=== PATIENT | male | born 1930 | race Caucasian/White ===

== ENCOUNTER → 2017-01-11 | Outpatient (CLI) | payer OTHER, BC ==
[~2017-01-11] MED LIST: ACET-1256 PO; ADVIN10/60 INH; ALBUAER19 INH; ARTIOIN OPB; ASTN NAE; AZAT50TA17 PO; CARB25TA12 PO; CLB/200 PO; DOCU100C31 PO; DUTA0.5C PO; FLUOCINOLONE TOP; IPRASOL4 INH; LVQ750 PO; MULT-190 PO; MULT-845 PO; NYST1POW7 TD; PANT40TA PO; POLYSOL4 OP; POLYSOL4 OPB; PRED10TA PO; PRED20TA PO; SNG10 PO; SYMIN160 INH; TRMCR130WC TD; TYLOTC500 PO; VNTHFA/IN INH
[2017-01-11 12:57] LABS: URINE APPEARANCE CLEAR (CLEAR); URINE BILIRUBIN NEG (NEG); URINE COLOR YELLOW; URINE NITRITE NEG (NEG); URINE SPECIFIC GRAVITY 1.015 (1.000-1.030); UROBILINOGEN NEG (NEG)
[2017-01-11 12:58] LABS: MANUAL MICROSCOPIC REQUIRED? NO; REVIEW REQ? NO
== END | disposition home or self-care (01) ==
LOC: C.LABVPSUA 12:17
PROVIDERS: ATTEND Internal Medicine Critical Care Medicine
DX: R50.9 Fever, unspecified (principal); R41.0 Disorientation, unspecified

== ENCOUNTER → 2017-01-23 | Outpatient (CLI) | payer OTHER, MEDICARE ==
[2017-01-23 12:18] LABS: BLOOD UREA NITROGEN 29 mg/dl (7-18); BUN/CREATININE RATIO 17.9 (10-20); CALCIUM 8.9 mg/dl (8.5-10.1); CARBON DIOXIDE 26 mmol/L (21-32); CHLORIDE 107 mmol/L (98-107); GLUCOSE 89 mg/dl (70-99); MAGNESIUM 2.5 mg/dl (1.8-2.4); PHOSPHORUS 3.5 mg/dl (2.5-4.9); POTASSIUM 4.2 mmol/L (3.5-5.1); SODIUM 142 mmol/L (136-145)
== END | disposition home or self-care (01) ==
LOC: C.LAB1850 10:55
PROVIDERS: ATTEND Internal Medicine Nephrology
DX: N18.3 Chronic kidney disease, stage 3 (moderate) (principal)

== ENCOUNTER 2017-01-24 11:45 | Observation (INO) | payer OTHER, MEDICARE ==
[~2017-01-24] VITALS: Ht 172.7 cm; Wt 87.3 kg
[~2017-01-24 11:45] MED LIST changes: -ACET-1256 PO; -ADVIN10/60 INH; -ARTIOIN OPB; -AZAT50TA17 PO; -CARB25TA12 PO; -DOCU100C31 PO; -IPRASOL4 INH; -LVQ750 PO; -NYST1POW7 TD; -PANT40TA PO; -POLYSOL4 OPB; -PRED20TA PO; -TRMCR130WC TD; -VNTHFA/IN INH
[2017-01-24] MEDS ORDERED: SODIUM CHLORIDE 0.9% 1000ML 1,000 ML IV STA (13:18)
--- NOTE | 2017-01-24 13:25 | EMERGENCY ROOM VISIT NOTE ---
History Report prepared by Jf: Kira Castillo Under the Supervision of: Dr. Chayito Machuca M.D. First contact with patient: 13:12 Chief Complaint: REFERRED BY DOCTOR Stated Complaint: SENT FROM 'S OFFICE FOR ER History of Present Illness The patient is a 86 year old male who presents to the Emergency Room with complaints of worsening neurological symptoms beginning a few days prior to arrival. Per the patient's , the patient has a history of subdural cranial hematoma and as a result has a shunt in place. The patient is followed by Dr. Win [facility]. One week ago the patient had his shunt lowered one degree due to worsening short term memory loss the patient was experiencing. After the procedure the patient had excellent results for two days. After those two days the patient regressed and worsened from his baseline prior to the lowering of the shunt. The patient was unsure of where he was or who his was. The patient was referred to the ED and Dr. Win would like a CT scan of the head to be done and sent to [place] for him to review. If changed to the shunt location, he would like the patient to be transferred to [place]. The patient has been experiencing a 20 pound weight loss in the past few weeks. He did have a bowel movement today. The patient has also been experiencing a rash for the past 3 months and the cause is unknown. The patient denies fever, headache, chest pain, nausea and abdominal pain. He currently is a resident at [place] in the [facility]. 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 A total of 10 systems reviewed and were otherwise negative. Past Medical & Surgical Medical Problems: (1) Chronic intracranial subdural hematoma Surgical Problems: (1) History of hip replacement (2) History of knee replacement Family History Cancer Gallbladder disease Social History Smoking Status: Former Smoker Drug Use: none Marital Status: Housing Status: [facility] Occupation Status: retired Current/Historical Medications Scheduled Azelastine Hcl (Astelin Nasal [place]), 2 SPRAYS CRISTI DAILY Carbidopa/Levodopa (Sinemet 25MG/100MG), 1 TAB PO TID Celecoxib (CeleBREX), 200 MG PO QAM Dutasteride (Avodart), 0.5 MG PO QAM Montelukast Sod (Montelukast Sodium), 10 MG PO QPM Multiple Vitamins W/ Minerals (Centrum Silver Adult 50+), 1 TAB PO QAM Ocuvite Preservision (Ocuvite Preservision), 1 TAB PO DAILY Pantoprazole (Protonix), 40 MG PO DAILY Scheduled PRN Albuterol Hfa (Ventolin Hfa), 2 PUFFS INH Q4H PRN for SOB/Wheezing Ipratropium-Albuterol (Duoneb), 1 TREATMENT INH Q6H PRN for SOB/Wheezing Polyethylene Glycol-Propylene (Systane), 1 DROP OP UD PRN for Dry Eye(s) Allergies Coded Allergies: Animal Dander (Verified Allergy, Unknown, SHORTNESS OF BREATH, 01/24/17) Dust (Verified Allergy, Unknown, SHORTNESS OF BREATH, 01/24/17) NO KNOWN DRUG ALLERGIES (Verified Allergy, Unknown, NONE, 01/24/17) Physical Exam Vital Signs Date Time Temp Pulse Resp B/P Pulse Ox O2 Delivery O2 Flow Rate FiO2 01/24/17 18:05 80 154/80 95 Room Air 01/24/17 15:29 78 139/69 95 Room Air 01/24/17 15:09 78 95 01/24/17 15:04 78 133/71 94 Room Air 01/24/17 15:04 79 133/71 95 01/24/17 13:59 144/81 01/24/17 13:55 79 18 96 01/24/17 13:50 80 19 96 01/24/17 13:45 78 21 94 01/24/17 13:40 80 18 01/24/17 13:35 80 22 01/24/17 13:33 80 01/24/17 13:31 127/74 01/24/17 11:48 36.8 86 18 136/72 94 Room Air Physical Exam Vital signs reviewed. General: Well-appearing elderly man, in no significant distress. HEENT: No scleral icterus, PERRLA, neck supple. Atraumatic. Cardiovascular: Regular rate and rhythm, no extra sounds. Pulmonary: Clear to auscultation bilaterally, normal work of breathing. Abdomen: Soft, nontender, nondistended, positive bowel sounds. Musculoskeletal: Atraumatic, no peripheral edema. Neurologic: Patient awake alert and answers most questions appropriately. Hard of hearing. Confused to city but answers all other questions appropriately. Follows commands. Skin: Warm, dry, no rash Medical Decision & Procedures ER Provider Diagnostic Interpretation: X-ray results as stated below per my interpretation and radiologist interpretation. Other radiology results as stated below per my review and radiologist interpretation: SKULL <4 VIEWS, CERVICAL SPINE 2 OR 3 VIEWS, CHEST 2 VIEWS ROUTINE, ABDOMEN 2 VIEWS CLINICAL HISTORY: 2 views shunt. Evaluate shunt catheter. COMPARISON STUDY: Chest 06/05/2016. FINDINGS: Prior right frontal craniotomy. There is a right frontoparietal ventriculostomy catheter at the high convexity with the tip terminating near the midline. The right-sided shunt tubing appears intact. There are are bibasilar linear densities suggesting subsegmental atelectasis. The heart is top normal in size. No pleural effusions. No pneumothorax. Severe degenerative changes within the bilateral shoulders. The shunt enters the right side the abdomen with the tip terminating in the mid deep pelvis. Bilateral total hip arthroplasties. The bowel gas pattern is unremarkable. Degenerative changes within the mid cervical spine. IMPRESSION: 1. Right-sided ventriculostomy catheter. The tubing appears intact. The distal tip terminates in the mid deep pelvis. 2. Mild bibasilar subsegmental atelectasis within the lungs. 3. Unremarkable bowel gas pattern. No evidence for bowel obstruction. Electronically signed by: Tim Grey M.D. 01/24/2017 2:55 PM Dictated Date/Time: 01/24/2017 2:49 PM SKULL <4 VIEWS, CERVICAL SPINE 2 OR 3 VIEWS, CHEST 2 VIEWS ROUTINE, ABDOMEN 2 VIEWS CLINICAL HISTORY: 2 views shunt. Evaluate shunt catheter. COMPARISON STUDY: Chest 06/05/2016. FINDINGS: Prior right frontal craniotomy. There is a right frontoparietal ventriculostomy catheter at the high convexity with the tip terminating near the midline. The right-sided shunt tubing appears intact. There are are bibasilar linear densities suggesting subsegmental atelectasis. The heart is top normal in size. No pleural effusions. No pneumothorax. Severe degenerative changes within the bilateral shoulders. The shunt enters the right side the abdomen with the tip terminating in the mid deep pelvis. Bilateral total hip arthroplasties. The bowel gas pattern is unremarkable. Degenerative changes within the mid cervical spine. IMPRESSION: 1. Right-sided ventriculostomy catheter. The tubing appears intact. The distal tip terminates in the mid deep pelvis. 2. Mild bibasilar subsegmental atelectasis within the lungs. 3. Unremarkable bowel gas pattern. No evidence for bowel obstruction. Electronically signed by: Tim Grey M.D. 01/24/2017 2:55 PM Dictated Date/Time: 01/24/2017 2:49 PM SKULL <4 VIEWS, CERVICAL SPINE 2 OR 3 VIEWS, CHEST 2 VIEWS ROUTINE, ABDOMEN 2 VIEWS CLINICAL HISTORY: 2 views shunt. Evaluate shunt catheter. COMPARISON STUDY: Chest 06/05/2016. FINDINGS: Prior right frontal craniotomy. There is a right frontoparietal ventriculostomy catheter at the high convexity with the tip terminating near the midline. The right-sided shunt tubing appears intact. There are are bibasilar linear densities suggesting subsegmental atelectasis. The heart is top normal in size. No pleural effusions. No pneumothorax. Severe degenerative changes within the bilateral shoulders. The shunt enters the right side the abdomen with the tip terminating in the mid deep pelvis. Bilateral total hip arthroplasties. The bowel gas pattern is unremarkable. Degenerative changes within the mid cervical spine. IMPRESSION: 1. Right-sided ventriculostomy catheter. The tubing appears intact. The distal tip terminates in the mid deep pelvis. 2. Mild bibasilar subsegmental atelectasis within the lungs. 3. Unremarkable bowel gas pattern. No evidence for bowel obstruction. Electronically signed by: Tim Grey M.D. 01/24/2017 2:55 PM Dictated Date/Time: 01/24/2017 2:49 PM SKULL <4 VIEWS, CERVICAL SPINE 2 OR 3 VIEWS, CHEST 2 VIEWS ROUTINE, ABDOMEN 2 VIEWS CLINICAL HISTORY: 2 views shunt. Evaluate shunt catheter. COMPARISON STUDY: Chest 06/05/2016. FINDINGS: Prior right frontal craniotomy. There is a right frontoparietal ventriculostomy catheter at the high convexity with the tip terminating near the midline. The right-sided shunt tubing appears intact. There are are bibasilar linear densities suggesting subsegmental atelectasis. The heart is top normal in size. No pleural effusions. No pneumothorax. Severe degenerative changes within the bilateral shoulders. The shunt enters the right side the abdomen with the tip terminating in the mid deep pelvis. Bilateral total hip arthroplasties. The bowel gas pattern is unremarkable. Degenerative changes within the mid cervical spine. IMPRESSION: 1. Right-sided ventriculostomy catheter. The tubing appears intact. The distal tip terminates in the mid deep pelvis. 2. Mild bibasilar subsegmental atelectasis within the lungs. 3. Unremarkable bowel gas pattern. No evidence for bowel obstruction. Electronically signed by: Tim Grey M.D. 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 Comparison: 07/11/2016 Findings: The paranasal sinuses and mastoid air cells are clear. Bilateral prefrontal subdural hygromas. A curvilinear density previously described in the left extra-axial frontal region is no longer present. There is a subtle increase in density, however of the anterior aspects of the subdural hygromas. This may indicate a small component of subacute rebleed. There is no evidence for a parenchymal hemorrhagic component. Shunt tube has in good position. Dilatation of ventricular system is stable. Impression: 1. Prefrontal subdural hygromas/chronic hematomas. 2. Overall size and volume of the extra axial collections is unchanged, although a subtle increase in density in the prefrontal regions may indicate a small rebleed component. 3. No evidence for parenchymal hemorrhagic component 4. Stable mild hydrocephalus Electronically signed by: Kevin Alvarez M.D. 01/24/2017 2:25 PM Dictated Date/Time: 01/24/2017 2:18 PM Laboratory Results 01/24/17 13:45 Red Blood Count 4.28, Mean Corpuscular Volume 87.1, Mean Corpuscular Hemoglobin 28.5, Mean Corpuscular Hemoglobin Concent 32.7, Mean Platelet Volume 9.5, Neutrophils (%) (Auto) 71.7, Lymphocytes (%) (Auto) 7.5, Monocytes (%) (Auto) 13.6, Eosinophils (%) (Auto) 6.4, Basophils (%) (Auto) 0.3, Neutrophils # (Auto ) 7.11, Lymphocytes # (Auto) 0.74, Monocytes # (Auto) 1.35, Eosinophils # (Auto ) 0.63, Basophils # (Auto) 0.03 01/24/17 13:45 Test 01/24/17 13:45 01/24/17 14:02 01/24/17 14:43 01/24/17 18:10 White Blood Count 9.91 K/uL (4.8-10.8) Red Blood Count 4.28 M/uL (4.7-6.1) Hemoglobin 12.2 g/dL (14.0-18.0) Hematocrit 37.3 % (42-52) Mean Corpuscular Volume 87.1 fL (80-100) Mean Corpuscular Hemoglobin 28.5 pg (25-34) Mean Corpuscular Hemoglobin Concent 32.7 g/dl (32-36) Platelet Count 332 K/uL (130-400) Mean Platelet Volume 9.5 fL (7.4-10.4) Neutrophils (%) (Auto) 71.7 % Lymphocytes (%) (Auto) 7.5 % Monocytes (%) (Auto) 13.6 % Eosinophils (%) (Auto) 6.4 % Basophils (%) (Auto) 0.3 % Neutrophils # (Auto) 7.11 K/uL (1.4-6.5) Lymphocytes # (Auto) 0.74 K/uL (1.2-3.4) Monocytes # (Auto) 1.35 K/uL (0.11-0.59) Eosinophils # (Auto) 0.63 K/uL (0-0.5) Basophils # (Auto) 0.03 K/uL (0-0.2) RDW Standard Deviation 51.7 fL (36.4-46.3) RDW Coefficient of Variation 16.2 % (11.5-14.5) Immature Granulocyte % (Auto) 0.5 % Immature Granulocyte # (Auto) 0.05 K/uL (0.00-0.02) Anion Gap 10.0 mmol/L (3-11) Est Creatinine Clear Calc Drug Dose 35.6 ml/min Estimated GFR () 44.6 Estimated GFR (Non- 38.4 BUN/Creatinine Ratio 20.1 (10-20) Calcium Level 9.2 mg/dl (8.5-10.1) Magnesium Level 2.5 mg/dl (1.8-2.4) Total Bilirubin 0.3 mg/dl (0.2-1) Direct Bilirubin < 0.1 mg/dl (0-0.2) Aspartate Amino Transf (AST/SGOT) 17 U/L (15-37) Alanine Aminotransferase (ALT/SGPT) 28 U/L (12-78) Alkaline Phosphatase 82 U/L (45-117) Total Creatine Kinase 93 U/L (39-308) Creatine Kinase MB 4.8 ng/ml (0.5-3.6) Creatine Kinase MB Ratio 5.2 (0-3.0) Total Protein 7.4 gm/dl (6.4-8.2) Albumin 3.3 gm/dl (3.4-5.0) Prostate Specific Antigen 2.730 ng/ml (0.000-4.000) Free Prostate Specific Antigen 0.34 ng/ml Percent Free Prostate Specific Ag % Bedside Troponin I 0.010 ng/ml (0-0.045) Prothrombin Time 11.0 SECONDS (9.0-12.0) Prothromb Time International Ratio 1.0 (0.9-1.1) Activated Partial Thromboplast Time 29.6 SECONDS (21.0-31.0) Partial Thromboplastin Ratio 1.1 Urine Color YELLOW Urine Appearance CLEAR (CLEAR) Urine pH 5.0 (4.5-7.5) Urine Specific [place] 1.019 (1.000-1.030) Urine Protein NEG (NEG) Urine Glucose (UA) NEG (NEG) Urine Ketones NEG (NEG) Urine Occult Blood NEG (NEG) Urine Nitrite NEG (NEG) Urine Bilirubin NEG (NEG) Urine Urobilinogen NEG (NEG) Urine Leukocyte Esterase NEG (NEG) Laboratory results per my review. Medications Administered Medications (Trade) Dose Ordered Sig/Alcides Route Start Time Stop Time Status Last Admin Dose Admin Sodium Chloride (Nss 1000ml) 1,000 ml @ 125 mls/hr Q8H STAT IV 01/24/17 13:18 01/24/17 20:45 DC 01/24/17 13:45 125 MLS/HR ECG Indication: other (AMS) Rate (beats per minute): 79 Rhythm: normal sinus Findings: no acute ischemic change, no ectopy ED Course 1316: Past medical records reviewed. The patient was evaluated in room C11. A complete history and physical examination was performed. 1318: Sodium Chloride 1,000 ml @ 125 mls/hr IV. 1555: I spoke with Dr. Audelia Carver about the patient's CT scan. He states that there is no change from the CT scan done last week. 1612: I reviewed the patient's case with Dr. Liz ARITA. He will evaluate the patient for further management. Medical Decision The patient is a 86 year old male who presents to the ED with complaints of neurological changes. Differentials include metabolic, infection, hypoglycemia , electrolyte abnormalities, cardiac sources, intracerebral event, toxicologic, neurologic, as well as others were entertained. This patient was evaluated and appeared to be in no significant distress. CT scan of the head was performed and reveals a possible increase in density in the chronic subdural bleed. Per Dr. Win of neurosurgery at [facility], patient head CT has not changed from several days ago. patient was hydrated with normal saline solution. Laboratory work is fairly unrevealing. Urinalysis is negative. Patient does seem to be somewhat volume depleted. The patient was able to tolerate a dinner tray. He seems to be answering questions appropriately at that this time. He will be evaluated by the hospitalist service for further evaluation of the mental status changes periodically. Patient family are aware of the plan and agree. Consults Time Called: 1552 Consulting Physician: Dr. Audelia [facility] Returned Call: [phone] Audelia Carver about the patient's CT scan. He states that there is no change from the CT scan done last week. Additional Consults: Time Called: 1610 Consulted Physician: Dr. Liz ARITA Returned Call: [phone] Additional Comments: I reviewed the patient's case with Dr. Liz ARITA. He will evaluate the patient for further management. Impression Primary Impression: Altered mental status Additional Impression: Nontraumatic chronic subdural hemorrhage Scribe Attestation The scribe's documentation has been prepared under my direction and personally reviewed by me in its entirety. I confirm that the note above accurately reflects all work, treatment, procedures, and medical decision making performed by me. Departure Information Dispostion Being Evaluated By Hospitalist Referrals Chris Gibson M.D. (PCP) Problem Qualifiers Primary Impression: Altered mental status Altered mental status type: disorientation Qualified Codes: R41.0 - Disorientation, unspecified
[2017-01-24 13:57] LABS: BASO % 0.3 %; BASO ABS # 0.03 K/uL (0-0.2); COMPLETE YES; EOS % 6.4 %; HEMATOCRIT 37.3 % (42-52); IG% 0.5 %; LYMPH % 7.5 %; LYMPH ABS # 0.74 K/uL (1.2-3.4); MEAN CELL VOLUME 87.1 fL (80-100); MEAN CORPUSCULAR HEMOGLOBIN 28.5 pg (25-34); MEAN CORPUSCULAR HGB CONC 32.7 g/dl (32-36); MEAN PLATELET VOLUME 9.5 fL (7.4-10.4); MONO % 13.6 %; NEUT % 71.7 %; PLATELET COUNT 332 K/uL (130-400); RED BLOOD COUNT 4.28 M/uL (4.7-6.1); WHITE BLOOD COUNT 9.91 K/uL (4.8-10.8)
[2017-01-24 14:16] LABS: ALT/SGPT 28 U/L (12-78); BLOOD UREA NITROGEN 32 mg/dl (7-18); BUN/CREATININE RATIO 20.1 (10-20); CALCIUM 9.2 mg/dl (8.5-10.1); CARBON DIOXIDE 25 mmol/L (21-32); CHLORIDE 105 mmol/L (98-107); GLUCOSE 90 mg/dl (70-99); MAGNESIUM 2.5 mg/dl (1.8-2.4); POTASSIUM 4.2 mmol/L (3.5-5.1); SODIUM 140 mmol/L (136-145)
[2017-01-24 14:20] LABS: ALKALINE PHOSPHATASE 82 U/L (45-117); AST/SGOT 17 U/L (15-37); CKMB/CK RATIO 5.2 (0-3.0)
--- NOTE | 2017-01-24 14:27 | DIAGNOSTIC IMAGING REPORT ---
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 Comparison: 07/11/2016 Findings: The paranasal sinuses and mastoid air cells are clear. Bilateral prefrontal subdural hygromas. A curvilinear density previously described in the left extra-axial frontal region is no longer present. There is a subtle increase in density, however of the anterior aspects of the subdural hygromas. This may indicate a small component of subacute rebleed. There is no evidence for a parenchymal hemorrhagic component. Shunt tube has in good position. Dilatation of ventricular system is stable. Impression: 1. Prefrontal subdural hygromas/chronic hematomas. 2. Overall size and volume of the extra axial collections is unchanged, although a subtle increase in density in the prefrontal regions may indicate a small rebleed component. 3. No evidence for parenchymal hemorrhagic component 4. Stable mild hydrocephalus Electronically signed by: Kevin Alvarez M.D. 01/24/2017 2:25 PM Dictated Date/Time: 01/24/2017 2:18 PM
--- NOTE | 2017-01-24 14:57 | DIAGNOSTIC IMAGING REPORT ---
SKULL <4 VIEWS, CERVICAL SPINE 2 OR 3 VIEWS, CHEST 2 VIEWS ROUTINE, ABDOMEN 2 VIEWS CLINICAL HISTORY: 2 views shunt. Evaluate shunt catheter. COMPARISON STUDY: Chest 06/05/2016. FINDINGS: Prior right frontal craniotomy. There is a right frontoparietal ventriculostomy catheter at the high convexity with the tip terminating near the midline. The right-sided shunt tubing appears intact. There are are bibasilar linear densities suggesting subsegmental atelectasis. The heart is top normal in size. No pleural effusions. No pneumothorax. Severe degenerative changes within the bilateral shoulders. The shunt enters the right side the abdomen with the tip terminating in the mid deep pelvis. Bilateral total hip arthroplasties. The bowel gas pattern is unremarkable. Degenerative changes within the mid cervical spine. IMPRESSION: 1. Right-sided ventriculostomy catheter. The tubing appears intact. The distal tip terminates in the mid deep pelvis. 2. Mild bibasilar subsegmental atelectasis within the lungs. 3. Unremarkable bowel gas pattern. No evidence for bowel obstruction. Electronically signed by: Tim Grey M.D. 01/24/2017 2:55 PM Dictated Date/Time: 01/24/2017 2:49 PM
[2017-01-24 15:05] LABS: PARTIAL THROMBOPLASTIN RATIO 1.1
[2017-01-24] MEDS ORDERED: VNTHFA/IN INH (15:20)
[2017-01-24] MEDS ORDERED: CARB25TA12 PO (15:20)
[2017-01-24] MEDS ORDERED: IPRASOL4 INH (15:20)
[2017-01-24] MEDS ORDERED: PANT40TA PO (15:20)
--- NOTE | 2017-01-24 18:14 | History and Physical ---
History & Physical Date & Time of Service: Jan 24, 2017 at 17:51 Chief Complaint: Sent From 's Office For Er Primary Care Physician: Chris Gibson M.D. History of Present Illness Source: patient, family, clinic records, hospital records This patient is an 86-year-old male that presents emergency department with his with complaints of altered mental status worsening for the last 4 days. The patient's notes that he has been increasingly confused. He did not know where he was. She is convinced that he didn't recognize her earlier today. He also didn't know how to take his medications. This is all reportedly new. Most of the history is taken from the who is at the bedside. The patient has a history of NPH. He has had numerous brain surgeries. He had a EXHIBIT ARTIST shunt placed in 2014. Subsequently, he had subdural hematomas, which required a che hole procedure followed by a craniotomy and . He now follows with Dr. Win at [facility]. The patient saw his neurologist last week and had his shunt lowered. The patient's family thinks that this helps dramatically with his memory, however this was temporary. The patient currently denies any headache. He denies any dizziness or changes in vision. He denies any chest pain or shortness of breath. No recent illnesses. He has a cough, but this is chronic. He denies any abdominal pain, nausea or vomiting. Bowel movements are reportedly normal. The patient has incontinence, but denies any other urinary symptoms. Of note, the states that the patient has lost 20 pounds over the last few months. He also has been dealing with a pruritic rash all over his body over the last year. He has been to a river rafting guide. Biopsies were performed. They do not have a diagnosis. The patient was recently given a steroid injection, that seemed to help the itching. In the emergency department, the ED physician spoke with the patient's neurologist. Imaging was performed of the EXHIBIT ARTIST shunt. No changes were noted. The imaging was reviewed personally by Dr. Win. Past Medical/Surgical History Surgical Problems: Asthma Chronic kidney disease stage III Chronic subdural hematomas Gout Thyroid nodule mild dementia (1) History of hip replacement Status: Chronic (2) History of knee replacement Status: Chronic Family History Cancer Gallbladder disease Family history of dementia Social History Smoking Status: Former Smoker Drug Use: none Marital Status: Housing status: custodial ([facility]) Occupational Status: retired Multi-Drug Resistant Organisms History of MDRO: No Allergies Coded Allergies: Animal Dander (Verified Allergy, Unknown, SHORTNESS OF BREATH, 01/24/17) Dust (Verified Allergy, Unknown, SHORTNESS OF BREATH, 01/24/17) NO KNOWN DRUG ALLERGIES (Verified Allergy, Unknown, NONE, 01/24/17) Home Medications Scheduled Azelastine Hcl (Astelin Nasal [place]), 2 SPRAYS CRISTI DAILY Carbidopa/Levodopa (Sinemet 25MG/100MG), 1 TAB PO TID Celecoxib (CeleBREX), 200 MG PO QAM Dutasteride (Avodart), 0.5 MG PO QAM Montelukast Sod (Montelukast Sodium), 10 MG PO QPM Multiple Vitamins W/ Minerals (Centrum Silver Adult 50+), 1 TAB PO QAM Ocuvite Preservision (Ocuvite Preservision), 1 TAB PO DAILY Pantoprazole (Protonix), 40 MG PO DAILY Scheduled PRN Albuterol Hfa (Ventolin Hfa), 2 PUFFS INH Q4H PRN for SOB/Wheezing Ipratropium-Albuterol (Duoneb), 1 TREATMENT INH Q6H PRN for SOB/Wheezing Polyethylene Glycol-Propylene (Systane), 1 DROP OP UD PRN for Dry Eye(s) Review of Systems 10 system review performed and negative unless noted in HPI or below Physical Exam Vital Signs Date Time Temp Pulse Resp B/P Pulse Ox O2 Delivery O2 Flow Rate FiO2 01/24/17 15:29 78 139/69 95 Room Air 01/24/17 15:09 78 95 01/24/17 15:04 78 133/71 94 Room Air 01/24/17 15:04 79 133/71 95 01/24/17 13:59 144/81 01/24/17 13:55 79 18 96 01/24/17 13:50 80 19 96 01/24/17 13:45 78 21 94 01/24/17 13:40 80 18 01/24/17 13:35 80 22 01/24/17 13:33 80 01/24/17 13:31 127/74 01/24/17 11:48 36.8 86 18 136/72 94 Room Air VITALS: Vitals are noted on the nurse's note and reviewed by myself. Vital signs stable. GENERAL: 86-year-old male, in no acute distress, SKIN: The skin has flat, erythematous lesions with associated scratch martinez noted diffusely on the extremities HEAD: Normocephalic atraumatic. EYES: Pupils equal round and reactive to light and accommodation. Conjunctivae without injection, sclerae without icterus. Extraocular movements intact. MOUTH: Mucous membranes moist. Uvula midline. Airway patent. Tongue does not deviate. NECK: Supple without nuchal rigidity. No lymphadenopathy. Cervical spine is nontender. No JVD. HEART: Regular rate and rhythm without murmurs gallops or rubs. LUNGS: Mild wheeze bilaterally. No crackles the bases. No accessory muscle use or tachypnea noted. ABDOMEN: Positive bowel sounds x 4.Soft, nontender, without organomegaly. No guarding or rebound tenderness. MUSCULOSKELETAL: No muscle atrophy, erythema, or edema noted. Strength 5/5 throughout. NEURO: Patient was alert and oriented to person and place only. Difficulty with cerebellar function. Diagnostics Laboratory Results 01/24/17 13:45 Red Blood Count 4.28, Mean Corpuscular Volume 87.1, Mean Corpuscular Hemoglobin 28.5, Mean Corpuscular Hemoglobin Concent 32.7, Mean Platelet Volume 9.5, Neutrophils (%) (Auto) 71.7, Lymphocytes (%) (Auto) 7.5, Monocytes (%) (Auto) 13.6, Eosinophils (%) (Auto) 6.4, Basophils (%) (Auto) 0.3, Neutrophils # (Auto ) 7.11, Lymphocytes # (Auto) 0.74, Monocytes # (Auto) 1.35, Eosinophils # (Auto ) 0.63, Basophils # (Auto) 0.03 Test 01/24/17 13:45 01/24/17 14:02 01/24/17 14:43 White Blood Count 9.91 K/uL (4.8-10.8) Red Blood Count 4.28 M/uL (4.7-6.1) Hemoglobin 12.2 g/dL (14.0-18.0) Hematocrit 37.3 % (42-52) Mean Corpuscular Volume 87.1 fL (80-100) Mean Corpuscular Hemoglobin 28.5 pg (25-34) Mean Corpuscular Hemoglobin Concent 32.7 g/dl (32-36) Platelet Count 332 K/uL (130-400) Mean Platelet Volume 9.5 fL (7.4-10.4) Neutrophils (%) (Auto) 71.7 % Lymphocytes (%) (Auto) 7.5 % Monocytes (%) (Auto) 13.6 % Eosinophils (%) (Auto) 6.4 % Basophils (%) (Auto) 0.3 % Neutrophils # (Auto) 7.11 K/uL (1.4-6.5) Lymphocytes # (Auto) 0.74 K/uL (1.2-3.4) Monocytes # (Auto) 1.35 K/uL (0.11-0.59) Eosinophils # (Auto) 0.63 K/uL (0-0.5) Basophils # (Auto) 0.03 K/uL (0-0.2) RDW Standard Deviation 51.7 fL (36.4-46.3) RDW Coefficient of Variation 16.2 % (11.5-14.5) Immature Granulocyte % (Auto) 0.5 % Immature Granulocyte # (Auto) 0.05 K/uL (0.00-0.02) Anion Gap 10.0 mmol/L (3-11) Est Creatinine Clear Calc Drug Dose 35.6 ml/min Estimated GFR () 44.6 Estimated GFR (Non- 38.4 BUN/Creatinine Ratio 20.1 (10-20) Calcium Level 9.2 mg/dl (8.5-10.1) Magnesium Level 2.5 mg/dl (1.8-2.4) Total Bilirubin 0.3 mg/dl (0.2-1) Direct Bilirubin < 0.1 mg/dl (0-0.2) Aspartate Amino Transf (AST/SGOT) 17 U/L (15-37) Alanine Aminotransferase (ALT/SGPT) 28 U/L (12-78) Alkaline Phosphatase 82 U/L (45-117) Total Creatine Kinase 93 U/L (39-308) Creatine Kinase MB 4.8 ng/ml (0.5-3.6) Creatine Kinase MB Ratio 5.2 (0-3.0) Total Protein 7.4 gm/dl (6.4-8.2) Albumin 3.3 gm/dl (3.4-5.0) Bedside Troponin I 0.010 ng/ml (0-0.045) Prothrombin Time 11.0 SECONDS (9.0-12.0) Prothromb Time International Ratio 1.0 (0.9-1.1) Activated Partial Thromboplast Time 29.6 SECONDS (21.0-31.0) Partial Thromboplastin Ratio 1.1 Results Past 24 Hours Test 01/24/17 13:45 01/24/17 14:02 01/24/17 14:43 Range/Units White Blood Count 9.91 4.8-10.8 K/uL Red Blood Count 4.28 4.7-6.1 M/uL Hemoglobin 12.2 14.0-18.0 g/dL Hematocrit 37.3 42-52 % Mean Corpuscular Volume 87.1 80-100 fL Mean Corpuscular Hemoglobin 28.5 25-34 pg Mean Corpuscular Hemoglobin Concent 32.7 32-36 g/dl Platelet Count 332 130-400 K/uL Mean Platelet Volume 9.5 7.4-10.4 fL Neutrophils (%) (Auto) 71.7 % Lymphocytes (%) (Auto) 7.5 % Monocytes (%) (Auto) 13.6 % Eosinophils (%) (Auto) 6.4 % Basophils (%) (Auto) 0.3 % Neutrophils # (Auto) 7.11 1.4-6.5 K/uL Lymphocytes # (Auto) 0.74 1.2-3.4 K/uL Monocytes # (Auto) 1.35 0.11-0.59 K/uL Eosinophils # (Auto) 0.63 0-0.5 K/uL Basophils # (Auto) 0.03 0-0.2 K/uL RDW Standard Deviation 51.7 36.4-46.3 fL RDW Coefficient of Variation 16.2 11.5-14.5 % Immature Granulocyte % (Auto) 0.5 % Immature Granulocyte # (Auto) 0.05 0.00-0.02 K/uL Sodium Level 140 136-145 mmol/L Potassium Level 4.2 3.5-5.1 mmol/L Chloride Level 105 98-107 mmol/L Carbon Dioxide Level 25 21-32 mmol/L Anion Gap 10.0 3-11 mmol/L Blood Urea Nitrogen 32 7-18 mg/dl Creatinine 1.60 0.60-1.40 mg/dl Est Creatinine Clear Calc Drug Dose 35.6 ml/min Estimated GFR () 44.6 Estimated GFR (Non- 38.4 BUN/Creatinine Ratio 20.1 10-20 Random Glucose 90 70-99 mg/dl Calcium Level 9.2 8.5-10.1 mg/dl Magnesium Level 2.5 1.8-2.4 mg/dl Total Bilirubin 0.3 0.2-1 mg/dl Direct Bilirubin < 0.1 0-0.2 mg/dl Aspartate Amino Transf (AST/SGOT) 17 15-37 U/L Alanine Aminotransferase (ALT/SGPT) 28 12-78 U/L Alkaline Phosphatase 82 45-117 U/L Total Creatine Kinase 93 39-308 U/L Creatine Kinase MB 4.8 0.5-3.6 ng/ml Creatine Kinase MB Ratio 5.2 0-3.0 Total Protein 7.4 6.4-8.2 gm/dl Albumin 3.3 3.4-5.0 gm/dl Bedside Troponin I 0.010 0-0.045 ng/ml Prothrombin Time 11.0 9.0-12.0 SECONDS Prothromb Time International Ratio 1.0 0.9-1.1 Activated Partial Thromboplast Time 29.6 21.0-31.0 SECONDS Partial Thromboplastin Ratio 1.1 Diagnostic Radiology Patient Name: AUTUMN BURKS Unit Number: [id number] Dictated: 01/24/171448 Transcribed: 01/24/171448 Retellity Printed Date/Time: [~ rep prt dt]/[~ rep prt tm] [~ rep ct labl] - [~ rep ct ivnm] [facility] [place] [address] Dictated: 01/24/171448 Transcribed: 01/24/171448 Retellity Printed Date/Time: [~ rep prt dt]/[~ rep prt tm] [~ rep ct labl] - [~ rep ct ivnm] Patient: AUTUMN BURKS Rema FARIA Address1: [address] [facility] Rec: [id number] Address2: Acct ID: [id number] [facility] Zip: [place] [address] Date: 1930 Sex: M Room/Bed: Ref Phy: Marcos Win MD SC: CHERIE Att Phy: Report #: [id number] Mariel Phy: Chris Gibson M.D. Test: CS3 Admit Phy: [employer]er: KASANDRA Interpreting Phy: Tim Grey MD Diagnosis: SENT FROM 'S OFFICE FOR ER Ordering Phy: Chayito Machuca M.D. Service Date: 01/24/17 Admit Date: 01/24/17 MNE: [id number] CONF: DICTATED BY: Tim Grey M.D.]] CC: Chayito Machuca M.D. Koberna, Paul, M.D. Rizk, Elias B., MD Endcc: [~ rep ct add3]] SKULL <4 VIEWS, CERVICAL SPINE 2 OR 3 VIEWS, CHEST 2 VIEWS ROUTINE, ABDOMEN 2 VIEWS CLINICAL HISTORY: 2 views shunt. Evaluate shunt catheter. COMPARISON STUDY: Chest 06/05/2016. FINDINGS: Prior right frontal craniotomy. There is a right frontoparietal ventriculostomy catheter at the high convexity with the tip terminating near the midline. The right-sided shunt tubing appears intact. There are are bibasilar linear densities suggesting subsegmental atelectasis. The heart is top normal in size. No pleural effusions. No pneumothorax. Severe degenerative changes within the bilateral shoulders. The shunt enters the right side the abdomen with the tip terminating in the mid deep pelvis. Bilateral total hip arthroplasties. The bowel gas pattern is unremarkable. Degenerative changes within the mid cervical spine. IMPRESSION: 1. Right-sided ventriculostomy catheter. The tubing appears intact. The distal tip terminates in the mid deep pelvis. 2. Mild bibasilar subsegmental atelectasis within the lungs. 3. Unremarkable bowel gas pattern. No evidence for bowel obstruction. Electronically signed by: Tim Grey M.D. 01/24/2017 2:55 PM Dictated Date/Time: 01/24/2017 2:49 PM The status of this report is Signed. Draft = Not yet reviewed or approved by Radiologist. Signed = Reviewed and approved by Radiologist. <AttendingPhy></AttendingPhy> <FamilyPhy>Marcos Win MD</FamilyPhy> < PrimaryPhy>Chris Gibson M.D.</PrimaryPhy> <UnitNumber>[id number]</UnitNumber> < VisitNumber>[id number]</VisitNumber> <PatientName>AUTUMN BURKS </ PatientName> <DateOfBirth>1930</DateOfBirth> <Location>C.EDC</Location> < ServiceDate>01/24/17</ServiceDate> <MNE>ESINDI</MNE> <OrderingPhy>Chayito Machuca M.D.</OrderingPhy> <OrderingPhyMNE>f rep ord dr rose</OrderingPhyMNE> < DictatingPhyMNE>f rep dict dr rose</DictatingPhyMNE> <CCListMNE>f rep ct mne</ CCListMNE> <AdmittingPhyMNE>f pt admit dr rose</AdmittingPhyMNE> <AttendingPhyMNE >f pt attend dr rose</AttendingPhyMNE> <ConsultingPhyMNE>f pt consult dr rose</ConsultingPhyMNE> <FamilyPhyMNE>f pt fam dr rose</FamilyPhyMNE> <OtherPhyMNE>f pt other dr rose</OtherPhyMNE> < PrimaryPhyMNE>f pt prim care dr rose</PrimaryPhyMNE> <ReferringPhyMNE>f pt referring dr rose</ReferringPhyMNE> EKG Normal sinus rhythm 79 bpm No ischemic changes noted Impression Assessment and Plan 86-year-old male presents emergency department with family with complaints of altered mental status-etiology at this point is unknown. Unlikely to be stemming from the patient's recent EXHIBIT ARTIST shunt adjustment as imaging was personally reviewed by his neurosurgeon and appeared unchanged. No infectious etiology noted. Possibly mild dehydration versus worsening dementia Altered mental status in the setting of NPH with a EXHIBIT ARTIST shunt-? worsening dementia -Observe on medical floor -Follow-up urinalysis/culture -Continue gentle IV hydration 1/2 NS + KCl 20 mEq at 80 cc/hr for additional 1 liter -Continue Sinemet 25/100 TID -If no improvement in 24 hours, consider neurology consult here or discussing the case again with the patient's neurosurgeon at [place] (Dr. Win) Asthma -Continue duo nebs every 6 hours scheduled -Continue Quan Rand CKD III-baseline Gout -Continue allopurinol 100 mg daily Urinary incontinence -Check UA as noted above -Bladder scan -Check PSA DVT prophylaxis -Consider chemical means if the patient is not discharged tomorrow -TEDS, SCDs CODE STATUS -LEVEL V DO NO RESUSCITATE i personally examined pt and verified all davis points w A [facility] PAC feeling more like himself. difficult to obtain hx from pt as talks over entire room including examiner and pt. [facility] neurosurg reviewed current films and d/w ER physician here and did not think shunt/hydrocephalus were culprit vitals noted, pleasant nad, no pallor or icterus, breathing unlabored, otherwise exam as above altered mental status - now seems to have improved. does have baseline dementia - ddx being encephalopathy (from dehydration, UTI) vs shunt related ( if no UTI on Cx, if doesn't improve w gentle hydration, would get local opinion from neurology and/or re-d/w [facility] neurosurg) vs waxing and waning of baseline dementia urinary incontinence -describes mostly as sudden and voluminous, only on directed questioning does he admit to hesitancy. doesn't seem to have frequency. insistent on repeat PSA - explained that this likely would not explain urinary sx as a marked and sudden rise in PSA would fit more with a malignancy that would not likely have urinary sx. would want ongoing f/u with urology in regards to potential for LUTS, but seems most c/w hydrocephalus or other more neurologic mediated with sudden, large volume otherwise as above Level of Care Med/Surg Resuscitation Status DO NOT RESUSCITATE VTE Prophylaxis VTE Risk Assessment Done? Y/N: Yes Risk Level: Low Given or contraindicated: T.E.D. Stockings, SCD's
[2017-01-24] MEDS ORDERED: ACETAMINOPHEN 325 MG TAB PO PRN (18:15)
[2017-01-24] MEDS ORDERED: ONDANSETRON INJ 2 MG/ML 2 ML VIAL IV PRN (18:15)
[2017-01-24 18:22] LABS: URINE APPEARANCE CLEAR (CLEAR); URINE BILIRUBIN NEG (NEG); URINE COLOR YELLOW; URINE NITRITE NEG (NEG); URINE SPECIFIC GRAVITY 1.019 (1.000-1.030); UROBILINOGEN NEG (NEG); ZZURINE CULT IF INDIC CATH NO
[2017-01-24 18:26] LABS: MANUAL MICROSCOPIC REQUIRED? NO; REVIEW REQ? NO
[2017-01-24] MEDS ORDERED: ALBUT/IPRATROP 3MG/0.5MG NEB 3 ML VIAL INH PRN (18:30)
[2017-01-24] MEDS: ALBUT/IPRATROP 3MG/0.5MG NEB 3 ML VIAL INH SCH ×2 (18:43→21:09)
[2017-01-24 18:44] LABS: FREE PSA 0.34 ng/ml; PROSTATE SPECIFIC ANTIGEN 2.73 ng/ml (0.000-4.000)
[2017-01-24] MEDS ORDERED: IV FLUIDS COMPLETED PRN (18:45)
[2017-01-24 20:10] VITALS: BP_SYST 118; BP_DIAS 64; BP_DIAS 69; PULSE 84; TEMP 36.7; O2SAT 94; Ht 172.7 cm; Wt 87.3 kg
[2017-01-24] MEDS ORDERED: SODIUM CHLOR 0.45% + 20MEQ KCL 1,000 ML IV SCH (21:00)
[2017-01-24] MEDS ORDERED: MONTELUKAST SOD 10 MG TAB PO SCH (21:00)
[2017-01-24 21:09] VITALS: PULSE 80; O2SAT 92
[2017-01-24] MEDS: CARBIDOPA/LEVODOPA 25/100MG TAB PO SCH (21:37)
[2017-01-24] MEDS: AVODART-ORDER AWAITING ACTION SCH (23:38)
[2017-01-25 00:07] VITALS: BP 112/60; PULSE 85; TEMP 36.5; O2SAT 90
[2017-01-25] MEDS: ALBUT/IPRATROP 3MG/0.5MG NEB 3 ML VIAL INH SCH ×3 (07:03→16:00)
[2017-01-25] MEDS: AVODART-ORDER AWAITING ACTION SCH ×2 (07:09→15:35)
[2017-01-25] MEDS: CARBIDOPA/LEVODOPA 25/100MG TAB PO SCH ×2 (07:49→13:52)
[2017-01-25 08:06] LABS: BASO % 0.3 %; BASO ABS # 0.03 K/uL (0-0.2); COMPLETE YES; EOS % 5.9 %; HEMATOCRIT 35.6 % (42-52); IG% 0.5 %; LYMPH % 6.8 %; LYMPH ABS # 0.68 K/uL (1.2-3.4); MEAN CELL VOLUME 87.3 fL (80-100); MEAN CORPUSCULAR HEMOGLOBIN 28.4 pg (25-34); MEAN CORPUSCULAR HGB CONC 32.6 g/dl (32-36); MEAN PLATELET VOLUME 9.8 fL (7.4-10.4); MONO % 13.6 %; NEUT % 72.9 %; PLATELET COUNT 311 K/uL (130-400); RED BLOOD COUNT 4.08 M/uL (4.7-6.1); WHITE BLOOD COUNT 10.02 K/uL (4.8-10.8)
[2017-01-25 08:07] VITALS: BP 120/70; PULSE 68; TEMP 36.6; O2SAT 96
[2017-01-25 08:15] VITALS: O2SAT 94
[2017-01-25 08:33] LABS: BUN/CREATININE RATIO 23.1 (10-20); CALCIUM 8.9 mg/dl (8.5-10.1); CREATININE 1.2 mg/dl (0.60-1.40); MAGNESIUM 2.4 mg/dl (1.8-2.4); POTASSIUM 4.2 mmol/L (3.5-5.1)
[2017-01-25] MEDS ORDERED: CeleBREX 200 MG CAP PO SCH (09:00)
[2017-01-25] MEDS ORDERED: PANTOprazole SOD 40 MG TAB PO SCH (09:00)
[2017-01-25] MEDS ORDERED: CEROVITE ADV FORMULA TAB PO SCH (09:00)
[2017-01-25 11:18] VITALS: PULSE 74; O2SAT 94
[2017-01-25 14:45] VITALS: BP 114/65; PULSE 76; TEMP 36.5; O2SAT 91
--- NOTE | 2017-01-25 15:05 | Discharge Instructions ---
Discharge Instructions Admission Reason for Admission: Altered Mental Status Discharge Discharge Diagnosis / Problem: Altered mental status Discharge Goals Goal(s): Decrease discomfort, Improve function, Increase independence, Improve disease control, Learn about illness, Diagnostic testing, Prevent Disease Progression Activity Recommendations Activity Limitations: resume your previous activity Exercise/Sports Limitations: none . Instructions / Follow-Up Instructions / Follow-Up Patient to be discharged back [facility] No changes in medications If worsening confusion, fevers, pain please report to ER Current Hospital Diet Patient's current hospital diet: Regular Diet Discharge Diet Recommended Diet: Regular Diet Pending Studies Studies pending at discharge: no Medical Emergencies . Who to Call and When: Medical Emergencies: If at any time you feel your situation is an emergency, please call 911 immediately. . Non-Emergent Contact Non-Emergency issues call your: Primary Care Provider Call Non-Emergent contact if: you have a fever, your pain is worsening . . "Provider Documentation" section prepared by Oj Patterson. VTE Core Measure Inpt VTE Proph given/why not?: Momo Evans, SCD's
--- NOTE | 2017-01-25 15:10 | Discharge Summary ---
Discharge Summary Date of Service Jan 25, 2017. Discharge Summary Admission Date: Jan 24, 2017 at 18:19 Discharge Date: Jan 25, 2017 Discharge Disposition: [facility] facility Principal Diagnosis: Confusion Medication Reconciliation Continued Medications: Albuterol Hfa (Ventolin Hfa) 200 Puffs/72760 Mcg Aers 2 PUFFS INH Q4H PRN for SOB/Wheezing, #1 INHALER Azelastine Hcl (Astelin Nasal [place]) 200 Sprays/30 Ml [place] 2 SPRAYS CRISTI DAILY Carbidopa/Levodopa (Sinemet 25MG/100MG) Tab 1 TAB PO TID, TAB Celecoxib (CeleBREX) 200 Mg Cap 200 MG PO QAM, CAP Dutasteride (Avodart) 0.5 Mg Cap 0.5 MG PO QAM, CAP Ipratropium-Albuterol (Duoneb) 3 Ml Nebu 1 TREATMENT INH Q6H PRN for SOB/Wheezing, INHA Montelukast Sod (Montelukast Sodium) 10 Mg Tab 10 MG PO QPM Multiple Vitamins W/ Minerals (Centrum Silver Adult 50+) 1 Tab Tab 1 TAB PO QAM Ocuvite Preservision (Ocuvite Preservision) 1 Tab Tab 1 TAB PO DAILY, TAB Pantoprazole (Protonix) 40 Mg Tab 40 MG PO DAILY, #30 TAB Polyethylene Glycol-Propylene (Systane) 1 [place] 1 DROP OP UD PRN for Dry Eye(s) Discharge Exam Review of Systems: Constitutional: No chills, No fever Eyes: No diplopia, No eye pain Respiratory: No cough, No sputum Cardiovascular: No chest pain, No orthopnea Abdomen: No constipation, No diarrhea, No nausea, No pain Musculoskeletal: No joint pain, No muscle pain Genitourinary - Male: No dysuria, No hematuria Neurologic: No paralysis, No weakness Integumentary: + itch, + rash Physical Exam: General Appearance: WD/WN, + mild distress Eyes: normal inspection, PERRL Neck: supple, no adenopathy Respiratory/Chest: lungs clear, normal breath sounds Cardiovascular: no edema, no gallop Abdomen / GI: non tender, soft Neurologic/Psychiatric: alert, + disoriented Hospital Course 86-year-old male presents emergency department with family with complaints of altered mental status-etiology at this point is unknown. Unlikely to be stemming from the patient's recent [employer] shunt adjustment as imaging was personally reviewed by his neurosurgeon and appeared unchanged. No infectious etiology noted. Possibly mild dehydration versus worsening dementia Altered mental status in the setting of NPH with a [employer]AL TR[employer]IVER shunt-? worsening dementia -Observe on medical floor, hemodynamically stable, no leukocytosis -UA unremarkable, Blood cx pending -Continue gentle IV hydration 1/2 NS + KCl 20 mEq at 80 cc/hr for additional 1 liter -Continue Sinemet 25/100 TID -Mentation improved, likely due to wavering dementia Asthma -Continue duo nebs every 6 hours scheduled -Continue Quan Rand CKD III-baseline Gout -Continue allopurinol 100 mg daily Urinary incontinence -Check UA as noted above -Bladder scan -Check PSA DVT prophylaxis -Consider chemical means if the patient is not discharged tomorrow -Bella ESPINOZA CODE STATUS -LEVEL V DO NO RESUSCITATE Total Time Spent: Greater than 30 minutes This includes examination of the patient, discharge planning, medication reconciliation, and communication with other providers. Discharge Instructions Please refer to the electronic Patient Visit Report (Discharge Instructions) for additional information. Additional Copies To Chris Gibson M.D.
[2017-01-25 16:36] VITALS: BP 114/65; PULSE 76; TEMP 36.5; O2SAT 91
== END 2017-01-25 18:30 ==
LOC: ENRESERVTM → ENRESERVDT → C.EDB 11:48 → C.MS2W 18:19 → EDBEDREQ 18:42
PROVIDERS: ADMIT Family Medicine; ATTEND Hospitalist
DX: R41.82 Altered mental status, unspecified (principal); Z98.2 Presence of cerebrospinal fluid drainage device; J45.909 Unspecified asthma, uncomplicated; N18.3 Chronic kidney disease, stage 3 (moderate); M10.9 Gout, unspecified; R32 Unspecified urinary incontinence; I62.03 Nontraumatic chronic subdural hemorrhage; F03.90 Unspecified dementia, unspecified severity, without behavioral disturbance, psychotic disturbance, mood disturbance, and anxiety; Z96.649 Presence of unspecified artificial hip joint; Z96.659 Presence of unspecified artificial knee joint; Z87.891 Personal history of nicotine dependence

== ENCOUNTER 2017-03-23 18:18 | Inpatient (IN) | payer OTHER, MEDICARE ==
[~2017-03-23] VITALS: Ht 172.7 cm; Wt 95.0 kg
[~2017-03-23 18:18] MED LIST changes: -ALBUAER19 INH; +CARB25TA12 PO; -FLUOCINOLONE TOP; +IPRASOL4 INH; +PANT40TA PO; -PRED10TA PO; -SYMIN160 INH; -TYLOTC500 PO; +VNTHFA/IN INH
[2017-03-23] MEDS ORDERED: SODIUM CHLORIDE 0.9% 1000ML 1,000 ML IV ONE (18:39)
[2017-03-23] MEDS ORDERED: SODIUM CHLORIDE 0.9% 1000ML 1,000 ML IV STA (18:39)
[2017-03-23] MEDS ORDERED: ACETAMINOPHEN 325 MG TAB PO STA (18:39)
[2017-03-23] MEDS ORDERED: ALBUT/IPRATROP 3MG/0.5MG NEB 3 ML VIAL INH STA (18:39)
--- NOTE | 2017-03-23 18:48 | EMERGENCY ROOM VISIT NOTE ---
History Report prepared by Jf: Richard Brandon Under the Supervision of: Dr. Herrera Case M.D. First contact with patient: 18:32 Chief Complaint: OTHER COMPLAINT Stated Complaint: FEVER,UNSTEADY,WEAKNESS,ALTERED MENTAL STATUS History of Present Illness The patient is an 86 year old male who presents to the Emergency Room with a persistent fever starting today. The patient's recorded his temperature at home which was 101. He has not had anything to control the fever. The patient has increased generalized weakness. The patient also appears to be less alert and appears "out of it" to his . He has had a cough, and sometimes has nebulizer treatments at [place] where he lives. The patient denies headache , abdominal pain, or other pain. The patient is incontinent at baseline. He has not fallen recently and is not on blood thinners. He has had an unknown rash since this past October for which is was on Prednisone. The patient is tapering off of Prednisone. He was admitted to the hospital here two months ago. The patient has a C[employer] shunt. He has had multiple brain surgeries. He does have a history of dementia but is not usually this out of it. The patient is DNR. Source of History: patient, spouse/significant other Onset: today Position: other (global) Symptom Intensity: 101 Quality: other (febrile) Timing: other (persistent) Associated Symptoms: + cough, + weakness, No abdominal pain, No headache Review of Systems See HPI for pertinent positives & negatives. A total of 10 systems reviewed and were otherwise negative. Past Medical & Surgical Medical Problems: (1) Chronic intracranial subdural hematoma Surgical Problems: (1) History of hip replacement (2) History of knee replacement Old medical records were reviewed. Nurse's notes were reviewed and I agree with. Family History Cancer Gallbladder disease Social History Smoking Status: Never Smoker Drug Use: none Marital Status: Housing Status: alf Occupation Status: retired Current/Historical Medications Scheduled Artificial Tears Oph Oint (Lacri-Lube Sop Oph Oint), 0.25-0.5 INCH OPB DAILY Azathioprine (Imuran), 50 MG PO DAILY Fluticasone Prop/Salmeterol (Advair Diskus 100/50 60 Dose), 1 PUFFS INH BID Nystatin (Topical) (Nystatin), 1 APPLN TD BID Ocuvite Preservision (Ocuvite Preservision), 1 TAB PO DAILY Polyethylene Glycol-Propylene (Systane), 1 DROPS OPB BID Prednisone (Prednisone), 40 MG PO QAM Triamcinolone Acet (Aristocort 0.1%), 1 APPLN TD BID Scheduled PRN Acetaminophen (Tylenol), 1,000 MG PO Q6H PRN for Pain Albuterol Hfa (Ventolin Hfa), 2 PUFFS INH Q4H PRN for SOB/Wheezing Docusate Sodium (Docusate Sodium), 1 CAP PO BID PRN for Constipation Allergies Coded Allergies: Animal Dander (Verified Allergy, Unknown, SHORTNESS OF BREATH, 01/24/17) Dust (Verified Allergy, Unknown, SHORTNESS OF BREATH, 01/24/17) NO KNOWN DRUG ALLERGIES (Verified Allergy, Unknown, NONE, 01/24/17) Physical Exam Vital Signs Date Time Temp Pulse Resp B/P Pulse Ox O2 Delivery O2 Flow Rate FiO2 03/23/17 21:03 37.6 81 21 131/66 96 Room Air 03/23/17 19:18 87 21 96 03/23/17 19:07 133/68 03/23/17 19:06 112 03/23/17 18:28 38.1 117 22 129/68 92 Room Air Physical Exam General: Older male that is mildly sleepy but answers most questions appropriately, mildly confused, shunt in right scalp. HEENT: Normal cephalic atraumatic. Pupils are equal round and reactive to light. Sclerae anicteric. Extraocular movements are intact. Oropharynx is pink with moist mucous membranes. No swelling of the mouth lips or tongue. Neck: Supple with a midline trachea. No meningeal signs or stiffness, no JVD or bruits. No Stridor. Negative Kernig and Brudzinski signs. Chest: Occasional wheeze noted. No increased work of breathing. Heart: regular rate and rhythm. Abdomen: Soft nontender, nondistended without rebound guarding or rigidity. Extremities: No cyanosis clubbing or edema. No calf tenderness or assymetry Spine/Back. Non tender to palpation. No CVA tenderness Skin: Good turgor without rashes. Neurologic exam: Cranial nerves two through 12 are intact. Motor and sensation are intact and symmetrical throughout. Medical Decision & Procedures ER Provider Diagnostic Interpretation: Radiology results as stated below per my review and radiologist interpretation: CHEST ONE VIEW PORTABLE CLINICAL HISTORY: Atypical chest pain COMPARISON STUDY: 01/24/2017 FINDINGS: The heart remains enlarged. There is a right-sided ventricular peritoneal shunt catheter. There is no lobar consolidation. There is stable mild interstitial thickening. There are advanced arthritic changes involving both shoulders with glenoid remodeling. There is radiographic evidence of chronic rotator cuff tear.[ IMPRESSION: Cardiomegaly. Mild chronic interstitial thickening. No acute findings. Electronically signed by: Paul Boyd M.D. 03/23/2017 7:32 PM Dictated Date/Time: 03/23/2017 7:[address] HEAD WITHOUT CONTRAST (CT) CLINICAL HISTORY: Fever, altered level of consciousness. COMPARISON STUDY: 01/24/2017 TECHNIQUE: Axial CT of the brain is performed from the vertex to the skull base. IV contrast was not administered for this examination. 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 There is no CT evidence of acute right renal hemorrhage. There is no evidence of midline shift. There is no CT evidence of acute cortical infarction. There are patchy white matter hypodensities likely on a small vessel basis. There is mild ventricular dilatation unchanged the prior study. There is no change in the position of the right frontal ventriculostomy catheter There are small sphenoid sinus air-fluid levels. Post craniotomy changes are again evident. IMPRESSION: 1. No change in the size of the chronic bifrontal subdural hematomas 2. Stable mild hydrocephalus. No change in the position of the right frontal ventriculostomy catheter 3. No evidence of acute parenchymal hemorrhage. Electronically signed by: Paul Body M.D. 03/23/2017 7:43 PM Dictated Date/Time: 03/23/2017 7:41 PM Laboratory Results 03/23/17 18:51 Red Blood Count 4.39, Mean Corpuscular Volume 90.2, Mean Corpuscular Hemoglobin 28.7, Mean Corpuscular Hemoglobin Concent 31.8, Mean Platelet Volume 9.9, Neutrophils (%) (Auto) 88.5, Lymphocytes (%) (Auto) 1.8, Monocytes (%) (Auto) 5.1, Eosinophils (%) (Auto) 2.9, Basophils (%) (Auto) 0.2, Neutrophils # (Auto) 8.32, Lymphocytes # (Auto) 0.17, Monocytes # (Auto) 0.48, Eosinophils # (Auto) 0.27, Basophils # (Auto) 0.02 03/23/17 18:51 Test 03/23/17 18:51 03/23/17 18:56 03/23/17 19:02 03/23/17 20:29 White Blood Count 9.40 K/uL (4.8-10.8) Red Blood Count 4.39 M/uL (4.7-6.1) Hemoglobin 12.6 g/dL (14.0-18.0) Hematocrit 39.6 % (42-52) Mean Corpuscular Volume 90.2 fL (80-100) Mean Corpuscular Hemoglobin 28.7 pg (25-34) Mean Corpuscular Hemoglobin Concent 31.8 g/dl (32-36) Platelet Count 185 K/uL (130-400) Mean Platelet Volume 9.9 fL (7.4-10.4) Neutrophils (%) (Auto) 88.5 % Lymphocytes (%) (Auto) 1.8 % Monocytes (%) (Auto) 5.1 % Eosinophils (%) (Auto) 2.9 % Basophils (%) (Auto) 0.2 % Neutrophils # (Auto) 8.32 K/uL (1.4-6.5) Lymphocytes # (Auto) 0.17 K/uL (1.2-3.4) Monocytes # (Auto) 0.48 K/uL (0.11-0.59) Eosinophils # (Auto) 0.27 K/uL (0-0.5) Basophils # (Auto) 0.02 K/uL (0-0.2) RDW Standard Deviation 61.3 fL (36.4-46.3) RDW Coefficient of Variation 18.5 % (11.5-14.5) Immature Granulocyte % (Auto) 1.5 % Immature Granulocyte # (Auto) 0.14 K/uL (0.00-0.02) Anion Gap 9.0 mmol/L (3-11) Est Creatinine Clear Calc Drug Dose 39.5 ml/min Estimated GFR () 48.2 Estimated GFR (Non- 41.6 BUN/Creatinine Ratio 23.5 (10-20) Calcium Level 8.4 mg/dl (8.5-10.1) Total Bilirubin 0.3 mg/dl (0.2-1) Direct Bilirubin 0.1 mg/dl (0-0.2) Aspartate Amino Transf (AST/SGOT) 96 U/L (15-37) Alanine Aminotransferase (ALT/SGPT) 136 U/L (12-78) Alkaline Phosphatase 93 U/L (45-117) Total Protein 7.0 gm/dl (6.4-8.2) Albumin 2.8 gm/dl (3.4-5.0) Lipase 137 U/L (73-393) Bedside Lactic Acid Venous 0.91 mmol/L (0.90-1.70) Bedside Troponin I 0.030 ng/ml (0-0.045) Influenza Type A (RT-PCR) Neg for Influ A (NEG) Influenza Type A Antigen Neg for Influ A (NEG) Influenza Type B Antigen Neg for Influ B (NEG) Influenza Type B (RT-PCR) Neg for Influ B (NEG) Laboratory studies as stated above per my review. Medications Administered Medications (Trade) Dose Ordered Sig/Alcides Route Start Time Stop Time Status Last Admin Dose Admin Sodium Chloride 1,000 ml @ 999 mls/hr Q1H1M STAT IV 03/23/17 18:39 03/23/17 19:39 DC 03/23/17 19:12 999 MLS/HR Sodium Chloride (Nss 1000ml) 1,000 ml @ 150 mls/hr Q6H40M ONCE IV 03/23/17 18:39 03/24/17 01:18 03/23/17 19:12 150 MLS/HR Acetaminophen (Tylenol Tab) 650 mg NOW STAT PO 03/23/17 18:39 03/23/17 18:42 DC 03/23/17 19:12 650 MG Albuterol/ Ipratropium (Duoneb) 3 ml NOW STAT INH 03/23/17 18:39 03/23/17 18:42 DC 03/23/17 19:12 3 ML Levofloxacin (Levaquin / D5W) 750 mg NOW ONCE IV 03/23/17 19:00 03/23/17 19:01 DC 03/23/17 19:14 750 MG Ceftriaxone Sodium (Rocephin Inj) 2 gm NOW STAT IV 03/23/17 20:27 03/23/17 20:28 DC 03/23/17 20:55 2 GM ECG Indication: altered mental status Rate (beats per minute): 111 Rhythm: sinus tachycardia Findings: no acute ischemic change, other (poor baseline) Change: Rate has increased compared to previous EKG dated 2016 ED Course 183: Past medical records reviewed. The patient was evaluated in room A3, and a complete history and physical examination were performed. 183: DuoNeb 3 ml INH, Tylenol 650 mg PO, NSS 1000 ml @ 150 mls/hr, NSS 1000 ml @ 999 mls/hr. 190: Levofloxacin 750 mg IV. 2019: Discussed the case with Dr. Fernandez, [facility]. The patient will be evaluated. 2024: Updated the patient and his . Medical Decision Differential diagnosis includes sepsis, pneumonia, shunt malfunction, intracranial hemorrhage, UTI, electrolyte or metabolic abnormality. This patient comes in as described above. He was placed in room A3. He has a fever as been more weak and confused. He's had no fall or trauma he's had a little bit of a cough. He denies any headache or significant complaints. No vomiting or diarrhea. He does have a C[employer]OCIATE shunt. IV access established blood work was obtained lactic acid was obtained. CAT scan shows no acute findings. She has chronic subdurals which are unchanged the shunt appears to be unchanged and working. White count and lactic acid are within normal limits the patient' s been normotensive is gently hydrated. EKG does not suggest acute cord syndrome or arrhythmia. Chest x-ray does not show pneumonia. Influenza is negative. This may more of a viral illness. I do not think is likely VP SECURITY process. The patient initially received IV Levaquin and also received IV Rocephin to cover the possibly VP SECURITY. Cultures been obtained. I do think he needs to be admitted for further treatment and evaluation of consulted Anai who saw him in the ER will admit him for these measures. Consults Time Called: 2009 [facility] Returned Call: 2019 2019: Discussed the case with Dr. Fernandez [facility]. The patient will be evaluated. Impression Primary Impression: Weakness Additional Impressions: Fever Altered mental status Scribe Attestation The scribe's documentation has been prepared under my direction and personally reviewed by me in its entirety. I confirm that the note above accurately reflects all work, treatment, procedures, and medical decision making performed by me. Departure Information Dispostion Being Evaluated By Hospitalist Referrals Chris Gibson M.D. (PCP) Patient Instructions My [facility] Health Problem Qualifiers
[2017-03-23] MEDS ORDERED: LEVAQUIN 750MG / 150ML D5W IV ONE (19:00)
[2017-03-23 19:18] LABS: BASO % 0.2 %; BASO ABS # 0.02 K/uL (0-0.2); COMPLETE YES; EOS % 2.9 %; HEMATOCRIT 39.6 % (42-52); IG% 1.5 %; LYMPH % 1.8 %; LYMPH ABS # 0.17 K/uL (1.2-3.4); MEAN CELL VOLUME 90.2 fL (80-100); MEAN CORPUSCULAR HEMOGLOBIN 28.7 pg (25-34); MEAN CORPUSCULAR HGB CONC 31.8 g/dl (32-36); MEAN PLATELET VOLUME 9.9 fL (7.4-10.4); MONO % 5.1 %; NEUT % 88.5 %; PLATELET COUNT 185 K/uL (130-400); RED BLOOD COUNT 4.39 M/uL (4.7-6.1)
--- NOTE | 2017-03-23 19:35 | DIAGNOSTIC IMAGING REPORT ---
CHEST ONE VIEW PORTABLE CLINICAL HISTORY: Atypical chest pain COMPARISON STUDY: 01/24/2017 FINDINGS: The heart remains enlarged. There is a right-sided ventricular peritoneal shunt catheter. There is no lobar consolidation. There is stable mild interstitial thickening. There are advanced arthritic changes involving both shoulders with glenoid remodeling. There is radiographic evidence of chronic rotator cuff tear.[ IMPRESSION: Cardiomegaly. Mild chronic interstitial thickening. No acute findings. Electronically signed by: Paul Boyd M.D. 03/23/2017 7:32 PM Dictated Date/Time: 03/23/2017 7:31 PM
[2017-03-23 19:37] LABS: BUN/CREATININE RATIO 23.5 (10-20); CALCIUM 8.4 mg/dl (8.5-10.1); CREATININE 1.5 mg/dl (0.60-1.40); POTASSIUM 4.4 mmol/L (3.5-5.1)
--- NOTE | 2017-03-23 19:46 | DIAGNOSTIC IMAGING REPORT ---
CT HEAD WITHOUT CONTRAST (CT) CLINICAL HISTORY: Fever, altered level of consciousness. COMPARISON STUDY: 01/24/2017 TECHNIQUE: Axial CT of the brain is performed from the vertex to the skull base. IV contrast was not administered for this examination. 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 There is no CT evidence of acute right renal hemorrhage. There is no evidence of midline shift. There is no CT evidence of acute cortical infarction. There are patchy white matter hypodensities likely on a small vessel basis. There is mild ventricular dilatation unchanged the prior study. There is no change in the position of the right frontal ventriculostomy catheter There are small sphenoid sinus air-fluid levels. Post craniotomy changes are again evident. IMPRESSION: 1. No change in the size of the chronic bifrontal subdural hematomas 2. Stable mild hydrocephalus. No change in the position of the right frontal ventriculostomy catheter 3. No evidence of acute parenchymal hemorrhage. Electronically signed by: Paul Boyd M.D. 03/23/2017 7:43 PM Dictated Date/Time: 03/23/2017 7:41 PM
[2017-03-23] MEDS ORDERED: CEFTRIAXONE SOD INJ 1 GM ADDVIAL IV STA (20:27)
[2017-03-23] MEDS ORDERED: ACET-1256 PO (20:41)
[2017-03-23] MEDS ORDERED: AZAT50TA17 PO (20:44)
[2017-03-23] MEDS ORDERED: DOCU100C31 PO (20:45)
[2017-03-23] MEDS ORDERED: ADVIN10/60 INH (20:46)
[2017-03-23] MEDS ORDERED: NYST1POW7 TD (20:48)
[2017-03-23] MEDS ORDERED: POLYSOL4 OPB (20:51)
[2017-03-23] MEDS ORDERED: ARTIOIN OPB (20:58)
[2017-03-23] MEDS ORDERED: PRED20TA PO (21:02)
[2017-03-23] MEDS ORDERED: TRMCR130WC TD (21:06)
[2017-03-23] MEDS ORDERED: ACETAMINOPHEN 325 MG TAB PO PRN (22:00)
[2017-03-23] MEDS ORDERED: DOCUSATE SODIUM 100 MG CAP PO PRN (22:00)
[2017-03-23] MEDS ORDERED: ONDANSETRON INJ 2 MG/ML 2 ML VIAL IV PRN (22:00)
--- NOTE | 2017-03-23 22:13 | History and Physical ---
History & Physical Date & Time of Service: Mar 23, 2017 at 22:13 Chief Complaint: Fever,Unsteady,Weakness,Altered Mental Status Primary Care Physician: Chris Gibson M.D. History of Present Illness Source: patient, spouse The patient is an 86-year-old male who lives at the [facility], who is able to come out visit with his a few hours on weekends, and his noted a fever up to 101 starting prior to arrival. Is also increased generalized weakness, is less alert, and "out of it" for his . She reports that he's had a cough and was receiving nebulizer treatments at the [facility] where he lives. He is incontinent, is also been on a prednisone taper since October for an unknown rash. 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 His reports that he has less alert in his usual baseline dementia. Past Medical/Surgical History Surgical Problems: (1) History of hip replacement Status: Chronic (2) History of knee replacement Status: Chronic Family History Cancer Gallbladder disease Social History Smoking Status: Never Smoker Smokeless Tobacco Use: No Alcohol Use: socially Drug Use: none Marital Status: Housing status: [facility] Occupational Status: retired Multi-Drug Resistant Organisms History of MDRO: No Allergies Coded Allergies: Animal Dander (Verified Allergy, Unknown, SHORTNESS OF BREATH, 01/24/17) Dust (Verified Allergy, Unknown, SHORTNESS OF BREATH, 01/24/17) NO KNOWN DRUG ALLERGIES (Verified Allergy, Unknown, NONE, 01/24/17) Home Medications Scheduled Artificial Tears Oph Oint (Lacri-Lube Sop Oph Oint), 0.25-0.5 INCH OPB DAILY Azathioprine (Imuran), 50 MG PO DAILY Fluticasone Prop/Salmeterol (Advair Diskus 100/50 60 Dose), 1 PUFFS INH BID Nystatin (Topical) (Nystatin), 1 APPLN TD BID Ocuvite Preservision (Ocuvite Preservision), 1 TAB PO DAILY Polyethylene Glycol-Propylene (Systane), 1 DROPS OPB BID Prednisone (Prednisone), 40 MG PO QAM Triamcinolone Acet (Aristocort 0.1%), 1 APPLN TD BID Scheduled PRN Acetaminophen (Tylenol), 1,000 MG PO Q6H PRN for Pain Albuterol Hfa (Ventolin Hfa), 2 PUFFS INH Q4H PRN for SOB/Wheezing Docusate Sodium (Docusate Sodium), 1 CAP PO BID PRN for Constipation Review of Systems The patient denies chest pain, palpitations, lower extremity swelling, vision change, hearing change, sore throat, fevers, chills, sweats, weight change, fatigue, nausea, vomiting, abdominal pain, pelvic pain, blood in urine or stool , dysuria, urinary frequency or urgency, lightheadedness, dizziness, headache, rash, abnormal bruising or bleeding, imbalance, focal weakness, numbness or tingling in arms or legs, arthralgias or myalgias, night sweats, or allergy symptoms. The review of systems is otherwise negative other than for that already noted above, and at least 10 systems have been reviewed. Physical Exam Vital Signs Date Time Temp Pulse Resp B/P Pulse Ox O2 Delivery O2 Flow Rate FiO2 03/23/17 21:03 37.6 81 21 131/66 96 Room Air 03/23/17 19:18 87 21 96 03/23/17 19:07 133/68 03/23/17 19:06 112 03/23/17 18:28 38.1 117 22 129/68 92 Room Air The patient is awake, well-developed and adequately nourished, alert and oriented 2, normocephalic and atraumatic, lying in bed and in no acute distress. HEENT--PERRL, EOMI, mucous membranes and oropharynx dry. Neck--supple, no JVD or bruits, thyroid normal, trachea midline, no adenopathy. Heart--normal S1 and S2, no extra beats, no murmurs, rubs or gallops. Lungs--coarse breath sounds bilaterally, no respiratory distress, no accessory muscle use. Abdomen--normal bowel sounds and soft, nontender and nondistended, no hernias or masses, no organomegaly. Extremities--no cyanosis, clubbing or edema. There are good distal pulses b/l. Dermatologic--normal skin turgor, normal color, warm and dry, no abnormal lymph nodes, no rash. Neurologic--cranial nerves II through XII grossly intact, motor and sensory examination normal. Rheumatologic--normal range of motion, nontender, muscles and joints. Psychiatric--normal affect. Diagnostics Laboratory Results Results Past 24 Hours Test 03/23/17 18:51 03/23/17 18:56 03/23/17 19:02 03/23/17 20:29 Range/Units White Blood Count 9.40 4.8-10.8 K/uL Red Blood Count 4.39 4.7-6.1 M/uL Hemoglobin 12.6 14.0-18.0 g/dL Hematocrit 39.6 42-52 % Mean Corpuscular Volume 90.2 80-100 fL Mean Corpuscular Hemoglobin 28.7 25-34 pg Mean Corpuscular Hemoglobin Concent 31.8 32-36 g/dl Platelet Count 185 130-400 K/uL Mean Platelet Volume 9.9 7.4-10.4 fL Neutrophils (%) (Auto) 88.5 % Lymphocytes (%) (Auto) 1.8 % Monocytes (%) (Auto) 5.1 % Eosinophils (%) (Auto) 2.9 % Basophils (%) (Auto) 0.2 % Neutrophils # (Auto) 8.32 1.4-6.5 K/uL Lymphocytes # (Auto) 0.17 1.2-3.4 K/uL Monocytes # (Auto) 0.48 0.11-0.59 K/uL Eosinophils # (Auto) 0.27 0-0.5 K/uL Basophils # (Auto) 0.02 0-0.2 K/uL RDW Standard Deviation 61.3 36.4-46.3 fL RDW Coefficient of Variation 18.5 11.5-14.5 % Immature Granulocyte % (Auto) 1.5 % Immature Granulocyte # (Auto) 0.14 0.00-0.02 K/uL Sodium Level 140 136-145 mmol/L Potassium Level 4.4 3.5-5.1 mmol/L Chloride Level 105 98-107 mmol/L Carbon Dioxide Level 26 21-32 mmol/L Anion Gap 9.0 3-11 mmol/L Blood Urea Nitrogen 35 7-18 mg/dl Creatinine 1.50 0.60-1.40 mg/dl Est Creatinine Clear Calc Drug Dose 39.5 ml/min Estimated GFR () 48.2 Estimated GFR (Non- 41.6 BUN/Creatinine Ratio 23.5 10-20 Random Glucose 122 70-99 mg/dl Calcium Level 8.4 8.5-10.1 mg/dl Total Bilirubin 0.3 0.2-1 mg/dl Direct Bilirubin 0.1 0-0.2 mg/dl Aspartate Amino Transf (AST/SGOT) 96 15-37 U/L Alanine Aminotransferase (ALT/SGPT) 136 12-78 U/L Alkaline Phosphatase 93 45-117 U/L Total Protein 7.0 6.4-8.2 gm/dl Albumin 2.8 3.4-5.0 gm/dl Lipase 137 73-393 U/L Bedside Lactic Acid Venous 0.91 0.90-1.70 mmol/L Bedside Troponin I 0.030 0-0.045 ng/ml Influenza Type A Antigen Neg for Influ A NEG Influenza Type B Antigen Neg for Influ B NEG Microbiology Results 03/23/17 Blood Culture, Received Pending 03/23/17 Blood Culture, Received Pending Diagnostic Radiology Patient Name: AUTUMN BURKS JR Unit Number: [id number] Dictated: 03/23/171940 Transcribed: 03/23/171940 ARG Printed Date/Time: [~ rep prt dt]/[~ rep prt tm] [~ rep ct labl] - [~ rep ct ivnm] [facility] Radiology Department [place] [id number] Dictated: 03/23/171940 Transcribed: 03/23/171940 ARG Printed Date/Time: [~ rep prt dt]/[~ rep prt tm] [~ rep ct labl] - [~ rep ct ivnm] CT HEAD WITHOUT CONTRAST (CT) CLINICAL HISTORY: Fever, altered level of consciousness. COMPARISON STUDY: 01/24/2017 TECHNIQUE: Axial CT of the brain is performed from the vertex to the skull base. IV contrast was not administered for this examination. 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 There is no CT evidence of acute right renal hemorrhage. There is no evidence of midline shift. There is no CT evidence of acute cortical infarction. There are patchy white matter hypodensities likely on a small vessel basis. There is mild ventricular dilatation unchanged the prior study. There is no change in the position of the right frontal ventriculostomy catheter There are small sphenoid sinus air-fluid levels. Post craniotomy changes are again evident. IMPRESSION: 1. No change in the size of the chronic bifrontal subdural hematomas 2. Stable mild hydrocephalus. No change in the position of the right frontal ventriculostomy catheter 3. No evidence of acute parenchymal hemorrhage. Electronically signed by: Paul Boyd M.D. 03/23/2017 7:43 PM Dictated Date/Time: 03/23/2017 7:41 PM The status of this report is Signed. Draft = Not yet reviewed or approved by Radiologist. Signed = Reviewed and approved by Radiologist. <AttendingPhy></AttendingPhy> <FamilyPhy>Chris Gibson M.D.</FamilyPhy> < PrimaryPhy>Chris Gibson M.D.</PrimaryPhy> <UnitNumber>[id number]</UnitNumber> < VisitNumber>[id number]</VisitNumber> <PatientName>AUTUMN BURKS JR</ PatientName> <DateOfBirth>1930</DateOfBirth> <Location>[facility]</Location> < ServiceDate>03/23/17</ServiceDate> <MNE>ESINDI</MNE> <OrderingPhy>Herrera Case M.D.</OrderingPhy> <OrderingPhyMNE>f rep ord dr rose</OrderingPhyMNE> < DictatingPhyMNE>f rep dict dr rose</DictatingPhyMNE> <CCListMNE>f rep ct mnbeto</ CCListMNE> <AdmittingPhyMNE>f pt admit dr rose</AdmittingPhyMNE> <AttendingPhyMNE >f pt attend dr rose</AttendingPhyMNE> <ConsultingPhyMNE>f pt consult dr rose</ConsultingPhyMNE> <FamilyPhyMNE>f pt fam dr rose</FamilyPhyMNE> <OtherPhyMNE>f pt other dr rose</OtherPhyMNE> < PrimaryPhyMNE>f pt prim care dr rose</PrimaryPhyMNE> <ReferringPhyMNE>f pt referring dr rose</ReferringPhyMNE> Patient Name: AUTUMN BURKS JR Unit Number: [id number] Dictated: 03/23/171930 Transcribed: 03/23/171930 ARG Printed Date/Time: [~ rep prt dt]/[~ rep prt tm] [~ rep ct labl] - [~ rep ct ivnm] [facility] [place]iology [place] [address] Dictated: 03/23/171930 Transcribed: 03/23/171930 ARG Printed Date/Time: [~ rep prt dt]/[~ rep prt tm] [~ rep ct labl] - [~ rep ct ivnm] [~ rep ct add3]] CHEST ONE VIEW PORTABLE CLINICAL HISTORY: Atypical chest pain COMPARISON STUDY: 01/24/2017 FINDINGS: The heart remains enlarged. There is a right-sided ventricular peritoneal shunt catheter. There is no lobar consolidation. There is stable mild interstitial thickening. There are advanced arthritic changes involving both shoulders with glenoid remodeling. There is radiographic evidence of chronic rotator cuff tear.[ IMPRESSION: Cardiomegaly. Mild chronic interstitial thickening. No acute findings. Electronically signed by: Paul Boyd M.D. 03/23/2017 7:32 PM Dictated Date/Time: 03/23/2017 7:31 PM The status of this report is Signed. Draft = Not yet reviewed or approved by Radiologist. Signed = Reviewed and approved by Radiologist. <AttendingPhy></AttendingPhy> <FamilyPhy>Chris Gibson M.D.</FamilyPhy> < PrimaryPhy>Chris Gibson M.D.</PrimaryPhy> <UnitNumber>[id number]</UnitNumber> < VisitNumber>[id number]</VisitNumber> <PatientName>AUTUMN BURKS JR</ PatientName> <DateOfBirth>1930</DateOfBirth> <Location>[facility]</Location> < ServiceDate>03/23/17</ServiceDate> <MNE>ESINDI</MNE> <OrderingPhy>Herrera Case M.D.</OrderingPhy> <OrderingPhyMNE>f rep ord dr rose</OrderingPhyMNE> < DictatingPhyMNE>f rep dict dr rose</DictatingPhyMNE> <CCListMNE>f rep ct elizabethe</ CCListMNE> <AdmittingPhyMNE>f pt admit dr rose</AdmittingPhyMNE> <AttendingPhyMNE >f pt attend dr rose</AttendingPhyMNE> <ConsultingPhyMNE>f pt consult dr rose</ConsultingPhyMNE> <FamilyPhyMNE>f pt fam dr rose</FamilyPhyMNE> <OtherPhyMNE>f pt other dr rose</OtherPhyMNE> < PrimaryPhyMNE>f pt prim care dr rose</PrimaryPhyMNE> <ReferringPhyMNE>f pt referring dr rose</ReferringPhyMNE> EKG EKG shows sinus tachycardia at 111 bpm, PVCs, fusion beats, there are otherwise no acute ST-T changes. Impression Assessment and Plan Upper respiratory infection/SIRS--place patient on ceftriaxone 1 g IV daily, levofloxacin 500 mg IV every 24 hours, Solu-Medrol 20 mg IV every 8 hours, and Xopenex/Atrovent nebulizer every 6 hours while awake and every 2 hours when necessary. This is the likely cause of his altered mental state. Chronic subdural hematoma/BENDER MACHINE OPERATOR shunt--CT head did not show any significant difference, therefore unlikely involved and have inflammatory infectious process. Parkinsonism--continue Sinemet 25/100, 1 by mouth 3 times a day. BPH--continue Avodart 0.5 mg by mouth every morning. GERD--continue pantoprazole 40 mg by mouth daily. Allergy/asthma--continue Astelin nasal spray, montelukast sodium. Dry eye/SMD-- continue Ocuvite PreserVision 1 tablet by mouth daily and Systane 1 drop OPB daily. Level of Care Med/Surg Advanced Directives Existing Advance Directive: No Existing Living Will: No Existing Power of Babysitter: No Resuscitation Status FULL RESUSCITATION VTE Prophylaxis VTE Risk Assessment Done? Y/N: Yes Risk Level: Moderate Given or contraindicated: SCD's
[2017-03-23 22:24] VITALS: Ht 172.7 cm; Wt 95.0 kg
[2017-03-23] MEDS ORDERED: IPRATROPIUM BROMIDE NEB SOLN 0.02% 2.5 ML VIAL INH PRN (22:30)
[2017-03-23] MEDS ORDERED: LEVALBUTEROL 1.25MG/0.5ML NEB INH PRN (22:30)
[2017-03-23 22:46] LABS: INFLUENZA A PCR Neg for Influ A (NEG); INFLUENZA B PCR Neg for Influ B (NEG)
[2017-03-23 23:00] VITALS: BP 106/65; PULSE 93; TEMP 37; O2SAT 93
[2017-03-23] MEDS ORDERED: LEVOFLOXACIN CONSULT ACTIVE PRN (23:15)
[2017-03-23] MEDS: METHYLPREDNISOLONE IV 20 MG in SYRINGE 0 ML IV SCH (23:57)
[2017-03-24] MEDS: IPRATROPIUM BROMIDE NEB SOLN 0.02% 2.5 ML VIAL INH SCH ×5 (01:40→19:46)
[2017-03-24] MEDS: LEVALBUTEROL 1.25MG/0.5ML NEB INH SCH ×5 (01:40→19:47)
[2017-03-24] MEDS ORDERED: LEVALBUTEROL/IPRATROPIUM NEB INH SCH (03:00)
[2017-03-24 07:12] LABS: HEMATOCRIT 34.8 % (42-52); MEAN CELL VOLUME 90.2 fL (80-100); MEAN CORPUSCULAR HEMOGLOBIN 29.5 pg (25-34); MEAN CORPUSCULAR HGB CONC 32.8 g/dl (32-36); MEAN PLATELET VOLUME 9.6 fL (7.4-10.4); PLATELET COUNT 167 K/uL (130-400); RED BLOOD COUNT 3.86 M/uL (4.7-6.1); WHITE BLOOD COUNT 6.53 K/uL (4.8-10.8)
[2017-03-24 07:16] VITALS: BP 131/80; PULSE 76; TEMP 36.8; O2SAT 94
[2017-03-24 07:40] LABS: BUN/CREATININE RATIO 21.7 (10-20); CALCIUM 7.8 mg/dl (8.5-10.1); CREATININE 1.4 mg/dl (0.60-1.40); MAGNESIUM 2.4 mg/dl (1.8-2.4); POTASSIUM 4.3 mmol/L (3.5-5.1)
[2017-03-24 07:47] VITALS: PULSE 75; O2SAT 95
[2017-03-24] MEDS: METHYLPREDNISOLONE IV 20 MG in SYRINGE 0 ML IV SCH ×2 (07:54→16:13)
[2017-03-24] MEDS: NYSTATIN POWDER 15GM BTL EXT SCH ×2 (07:54→19:34)
[2017-03-24] MEDS: TRIAMCINOLONE ACET 0.1% CR 15 GM TUBE EXT SCH ×2 (07:54→19:33)
[2017-03-24] MEDS: AZATHIOPRINE 50 MG TAB PO SCH (07:54)
[2017-03-24] MEDS: ARTIFICIAL TEARS OP OINT 3.5 GM TUBE OPB SCH (07:54)
[2017-03-24] MEDS: CEROVITE ADV FORMULA TAB PO SCH (07:55)
[2017-03-24] MEDS: GUAIFENESIN 600 MG TABCR PO SCH ×2 (07:55→21:12)
[2017-03-24 07:56] LABS: BASO % 0.2 %; BASO ABS # 0.01 K/uL (0-0.2); COMPLETE YES; EOS % 0.3 %; IG% 0.8 %; LYMPH % 5.1 %; LYMPH ABS # 0.33 K/uL (1.2-3.4); MONO % 3.8 %; NEUT % 89.8 %
[2017-03-24] MEDS: ARTIFICIAL TEARS OP SOLN OPB SCH ×4 (07:58→19:33)
--- NOTE | 2017-03-24 15:24 | Progress Note ---
Subjective Date of Service: Mar 24, 2017. Subjective Pt evaluation today including: conversation w/ patient, conversation w/ family , physical exam, chart review, lab review, review of inpatient medication list feeling much better - basically feels like normal self. feels like he has a respiratory infection is all. no headache no stiff neck no further fevers/ chills/sweats. pleased with his improvement as well. no other complaints he remembers me from prior care in [facility] Problem List Medical Problems: (1) Altered mental status Status: Acute (2) Altered mental status Status: Acute (3) Fever Status: Acute (4) Nontraumatic chronic subdural hemorrhage Status: Acute (5) Weakness Status: Acute Review of Systems ros otherwise negative except for as above Objective Vital Signs Date Time Temp Pulse Resp B/P Pulse Ox O2 Delivery O2 Flow Rate FiO2 03/24/17 08:00 Room Air 03/24/17 07:47 75 16 95 Room Air 03/24/17 07:16 36.8 76 18 131/80 94 Room Air 03/23/17 23:00 Room Air 94.0 03/23/17 23:00 37.0 93 20 106/65 93 Room Air 03/23/17 22:55 37.6 81 21 131/66 96 03/23/17 22:32 81 21 131/66 96 Room Air 03/23/17 22:24 Room Air 03/23/17 21:03 37.6 81 21 131/66 96 Room Air 03/23/17 19:18 87 21 96 03/23/17 19:07 133/68 03/23/17 19:06 112 03/23/17 18:28 38.1 117 22 129/68 92 Room Air Physical Exam General Appearance: no apparent distress Eyes: EOMI ENT: hearing grossly normal Neck: trachea midline Respiratory/Chest: lungs clear, normal breath sounds, no respiratory distress, no accessory muscle use (maybe sl decreased bibasilar but no adventitious sounds good effort) Extremities: normal range of motion 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, alert, normal mood/affect Skin: normal color, warm/dry Laboratory Results Last 24 Hours Test 03/23/17 18:51 03/23/17 18:56 03/23/17 19:02 03/23/17 20:29 White Blood Count 9.40 K/uL Red Blood Count 4.39 M/uL Hemoglobin 12.6 g/dL Hematocrit 39.6 % Mean Corpuscular Volume 90.2 fL Mean Corpuscular Hemoglobin 28.7 pg Mean Corpuscular Hemoglobin Concent 31.8 g/dl Platelet Count 185 K/uL Mean Platelet Volume 9.9 fL Neutrophils (%) (Auto) 88.5 % Lymphocytes (%) (Auto) 1.8 % Monocytes (%) (Auto) 5.1 % Eosinophils (%) (Auto) 2.9 % Basophils (%) (Auto) 0.2 % Neutrophils # (Auto) 8.32 K/uL Lymphocytes # (Auto) 0.17 K/uL Monocytes # (Auto) 0.48 K/uL Eosinophils # (Auto) 0.27 K/uL Basophils # (Auto) 0.02 K/uL RDW Standard Deviation 61.3 fL RDW Coefficient of Variation 18.5 % Immature Granulocyte % (Auto) 1.5 % Immature Granulocyte # (Auto) 0.14 K/uL Sodium Level 140 mmol/L Potassium Level 4.4 mmol/L Chloride Level 105 mmol/L Carbon Dioxide Level 26 mmol/L Anion Gap 9.0 mmol/L Blood Urea Nitrogen 35 mg/dl Creatinine 1.50 mg/dl Est Creatinine Clear Calc Drug Dose 39.5 ml/min Estimated GFR () 48.2 Estimated GFR (Non- 41.6 BUN/Creatinine Ratio 23.5 Random Glucose 122 mg/dl Calcium Level 8.4 mg/dl Total Bilirubin 0.3 mg/dl Direct Bilirubin 0.1 mg/dl Aspartate Amino Transf (AST/SGOT) 96 U/L Alanine Aminotransferase (ALT/SGPT) 136 U/L Alkaline Phosphatase 93 U/L Total Protein 7.0 gm/dl Albumin 2.8 gm/dl Lipase 137 U/L Bedside Lactic Acid Venous 0.91 mmol/L Bedside Troponin I 0.030 ng/ml Influenza Type A (RT-PCR) Neg for Influ A Influenza Type A Antigen Neg for Influ A Influenza Type B Antigen Neg for Influ B Influenza Type B (RT-PCR) Neg for Influ B Test 03/24/17 06:38 White Blood Count 6.53 K/uL Red Blood Count 3.86 M/uL Hemoglobin 11.4 g/dL Hematocrit 34.8 % Mean Corpuscular Volume 90.2 fL Mean Corpuscular Hemoglobin 29.5 pg Mean Corpuscular Hemoglobin Concent 32.8 g/dl Platelet Count 167 K/uL Mean Platelet Volume 9.6 fL Neutrophils (%) (Auto) 89.8 % Lymphocytes (%) (Auto) 5.1 % Monocytes (%) (Auto) 3.8 % Eosinophils (%) (Auto) 0.3 % Basophils (%) (Auto) 0.2 % Neutrophils # (Auto) 5.87 K/uL Lymphocytes # (Auto) 0.33 K/uL Monocytes # (Auto) 0.25 K/uL Eosinophils # (Auto) 0.02 K/uL Basophils # (Auto) 0.01 K/uL RDW Standard Deviation 61.3 fL RDW Coefficient of Variation 18.6 % Immature Granulocyte % (Auto) 0.8 % Immature Granulocyte # (Auto) 0.05 K/uL Sodium Level 140 mmol/L Potassium Level 4.3 mmol/L Chloride Level 108 mmol/L Carbon Dioxide Level 24 mmol/L Anion Gap 8.0 mmol/L Blood Urea Nitrogen 30 mg/dl Creatinine 1.40 mg/dl Est Creatinine Clear Calc Drug Dose 42.3 ml/min Estimated GFR () 52.4 Estimated GFR (Non- 45.2 BUN/Creatinine Ratio 21.7 Random Glucose 128 mg/dl Calcium Level 7.8 mg/dl Magnesium Level 2.4 mg/dl Assessment and Plan acute metabolic encephalopathy -due to SIRS -SIRS appearing due to respiratory infection; improved -with chronic neurologic disease (subdural hygromas, 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 was on levaquin and rocephin. does not appear to need double coverage - and since no clear need for CHUTE TENDER coverage, and easier to streamline to outpt therapy - will dc rocephin and finish w levaquin Chronic subdural hematoma/ORTHODONTIST ASSISTANT shunt--no CHUTE TENDER s/s. rapid total resolution of sx. no meningeal signs. appearing stable Parkinsonism--continue Sinemet 25/100, 1 by mouth 3 times a day. BPH--continue Avodart 0.5 mg by mouth every morning. GERD--continue pantoprazole 40 mg by mouth daily. Allergy/asthma--continue Astelin nasal spray, montelukast sodium. Dry eye/SMD-- continue Ocuvite PreserVision 1 tablet by mouth daily and Systane 1 drop OPB daily. DVT proph - with shunt and hygromas, while pharmacologic not an absolute contraindication, relative risk for bleeding issues is higher -- SCDs of questionable benefit but does not appear at risk for skin breakdown, so continue.
[2017-03-24 19:47] VITALS: PULSE 75; O2SAT 95
[2017-03-24] MEDS ORDERED: CEFTRIAXONE SOD INJ 1 GM in DEXTROSE 5% ADD-VANTAGE 50ML 50 ML IV SCH (21:00)
[2017-03-24 23:33] VITALS: BP 128/64; PULSE 78; TEMP 36.4; O2SAT 97
[2017-03-25] MEDS: METHYLPREDNISOLONE IV 20 MG in SYRINGE 0 ML IV SCH ×2 (00:06→08:37)
[2017-03-25] MEDS: IPRATROPIUM BROMIDE NEB SOLN 0.02% 2.5 ML VIAL INH SCH ×3 (01:46→15:00)
[2017-03-25] MEDS: LEVALBUTEROL 1.25MG/0.5ML NEB INH SCH ×3 (01:47→15:00)
[2017-03-25 07:22] VITALS: BP 118/65; PULSE 69; TEMP 36.4; O2SAT 97
[2017-03-25] MEDS: NYSTATIN POWDER 15GM BTL EXT SCH (08:36)
[2017-03-25] MEDS: ARTIFICIAL TEARS OP OINT 3.5 GM TUBE OPB SCH (08:37)
[2017-03-25] MEDS: GUAIFENESIN 600 MG TABCR PO SCH (08:37)
[2017-03-25] MEDS: ARTIFICIAL TEARS OP SOLN OPB SCH ×2 (08:37)
[2017-03-25] MEDS: TRIAMCINOLONE ACET 0.1% CR 15 GM TUBE EXT SCH (08:37)
[2017-03-25] MEDS: CEROVITE ADV FORMULA TAB PO SCH (08:37)
[2017-03-25] MEDS: AZATHIOPRINE 50 MG TAB PO SCH (08:38)
[2017-03-25] MEDS ORDERED: LVQ750 PO (14:23)
--- NOTE | 2017-03-25 14:25 | Discharge Instructions ---
Discharge Instructions Date of Service Mar 25, 2017. Admission Reason for Admission: Altered Mental Status,Chronic Intracranial Discharge Discharge Diagnosis / Problem: Upper respiratory infection , metabolic encephalopathy Discharge Goals Goal(s): Decrease discomfort Activity Recommendations Activity Limitations: resume your previous activity . Instructions / Follow-Up Instructions / Follow-Up Upper respiratory infection - Continue to use Levaquin every other day for 6 more days - Continue prednisone 40 mg daily as prescribed earlier Parkinsonism--continue Sinemet 25/100, 1 by mouth 3 times a day. BPH--continue Avodart 0.5 mg by mouth every morning. GERD--continue pantoprazole 40 mg by mouth daily. Allergy/asthma--continue Astelin nasal spray, montelukast sodium. Dry eye/SMD-- continue Ocuvite PreserVision 1 tablet by mouth daily and Systane 1 drop OPB daily. Please follow up with Your PCP in 2-3 days Current Hospital Diet Patient's current hospital diet: AHA Diet (Heart Healthy) Discharge Diet Recommended Diet: Regular Diet Pending Studies Studies pending at discharge: no Medical Emergencies . Who to Call and When: Medical Emergencies: If at any time you feel your situation is an emergency, please call 911 immediately. . Non-Emergent Contact Non-Emergency issues call your: Primary Care Provider . . "Provider Documentation" section prepared by Monse Schulz. . VTE Core Measure Inpt VTE Proph given/why not?: SCD's
[2017-03-25 14:33] VITALS: BP 118/65; PULSE 69; TEMP 36.4; O2SAT 97
--- NOTE | 2017-03-25 15:31 | Discharge Summary ---
Discharge Summary Date of Service Mar 25, 2017. (Monse Schulz MD) Discharge Summary Admission Date: Mar 23, 2017 at 21:53 Discharge Date: Mar 25, 2017 Discharge Disposition: Home Principal Diagnosis: Upper Respiratory infection (Monse Schulz MD) Medication Reconciliation New Medications: Levofloxacin (Levofloxacin) 750 Mg Tab 750 MG PO Q2D@2100 for 6 Days, TAB Continued Medications: Acetaminophen (Tylenol) 500 Mg Tab 1000 MG PO Q6H PRN for Pain, TAB Albuterol Hfa (Ventolin Hfa) 200 Puffs/97974 Mcg Aers 2 PUFFS INH Q4H PRN for SOB/Wheezing, #1 INHALER Artificial Tears Oph Oint (Lacri-Lube Sop Oph Oint) Oint 0.25-0.5 INCH OPB DAILY, #1 TUBE Azathioprine (Imuran) 50 Mg Tab 50 MG PO DAILY, TAB Docusate Sodium (Docusate Sodium) 100 Mg Cap 1 CAP PO BID PRN for Constipation, CAP Fluticasone Prop/Salmeterol (Advair Diskus 100/50 60 Dose) 1 Ea Aerp 1 PUFFS INH BID, #1 INHALER Nystatin (Topical) (Nystatin) 1 Pow Pow 1 APPLN TD BID Ocuvite Preservision (Ocuvite Preservision) 1 Tab Tab 1 TAB PO DAILY, TAB Polyethylene Glycol-Propylene (Systane) 1 Luba Luba 1 DROPS OPB BID Prednisone (Prednisone) 20 Mg Tab 40 MG PO QAM for 14 Days, #28 TAB BEGIN 03/23/17 X 14 DAYS. TAKE WITH FOOD. Triamcinolone Acet (Aristocort 0.1%) 90 Appln/30 Gm Cr 1 APPLN TD BID APPLY TO RASH TWICE DAILY Discharge Exam Doing well. Feels better. He is alert, awake and oriented Review of Systems: Constitutional: No chills, No fever Eyes: No worsening of vision ENT: No hearing loss Respiratory: No cough, No shortness of breath, No sputum Cardiovascular: No chest pain Abdomen: No diarrhea, No nausea, No pain Musculoskeletal: No joint pain Genitourinary - Male: No dysuria, No hematuria, No urinary frequency Psychiatric: No depression symptoms Endocrine: No fatigue Physical Exam: General Appearance: WD/WN, no apparent distress Eyes: normal inspection ENT: normal ENT inspection, hearing grossly normal Neck: supple Respiratory/Chest: chest non-tender, lungs clear, normal breath sounds, no respiratory distress, no accessory muscle use Cardiovascular: regular rate, rhythm Abdomen / GI: normal bowel sounds, non tender, soft Neurologic/Psychiatric: alert, normal mood/affect, oriented x 3 Skin: + pertinent finding (hyperpigmentation especially on right foot) (Monse Schulz MD) Hospital Course The patient is an 86-year-old male who lives at the [facility], who is able to come out visit with his a few hours on weekends, and his noted a fever up to 101 starting prior to arrival. Is also increased generalized weakness, is less alert, and "out of it" for his . She reports that he's had a cough and was receiving nebulizer treatments at the [facility] where he lives. He is incontinent, is also been on a prednisone taper since October for an unknown rash. He does have a CLIENT CARE COORDINATOR shunt, and has had multiple brain surgeries. His reports that he has less alert in his usual baseline dementia. Acute metabolic encephalopathy -due to SIRS -SIRS appearing due to respiratory infection; resolved -with chronic neurologic disease (subdural hygromas, CLIENT CARE COORDINATOR shunt) not surprising that he would probably have a fairly low threshold to become encephalopathic respiratory infection -?viral vs bacterial - but severe enough to cause him to become encephalopathic. was on levaquin and rocephin. - To continue to use 750 mg Levaquin every other day for 6 more days for a total of 7 days - His medical record indicates he was also ordered 40 mg prednisone every morning for 14 days which he can continue. 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 rapid total resolution of sx. no meningeal signs. appearing stable Parkinsonism--continue Sinemet 25/100, 1 by mouth 3 times a day. BPH--continue Avodart 0.5 mg by mouth every morning. GERD--continue pantoprazole 40 mg by mouth daily. Allergy/asthma--continue Astelin nasal spray, montelukast sodium. Dry eye/SMD-- continue Ocuvite PreserVision 1 tablet by mouth daily and Systane 1 drop OPB daily. DVT proph - with shunt and hygromas, while pharmacologic not an absolute contraindication, relative risk for bleeding issues is higher -- SCDs of questionable benefit but does not appear at risk for skin breakdown, so continue. Total Time Spent: Greater than 30 minutes This includes examination of the patient, discharge planning, medication reconciliation, and communication with other providers. (Monse Schulz MD) Resident Physician Supervision Note: I was present with Dr. Schulz during the history and exam. I discussed the case with the resident and agree with the findings and plan as documented in the note. Any exceptions or clarifications are listed here: [None] Documented By: Papa Gomez Total Time Spent: Greater than 30 minutes I spent 45 minutes planning discharge, seeing patient, and discussing plan with the patient's . (Papa Gomez.,D.O.) Discharge Instructions Please refer to the electronic Patient Visit Report (Discharge Instructions) for additional information. (Monse Schulz MD) Follow-Up With PCP in 2-3 days (Monse Schulz MD) Additional Copies To Chris Gibson M.D. Resident Tracking Resident Involvement: Resident Care Provided Care Provided: Adult Hospital Medicine (Monse Schulz MD)
[2017-03-25] MEDS ORDERED: LEVOFLOXACIN / D5W 750 MG in PREMIXED IN D5W 150 ML IV SCH (19:00)
[2017-03-25] MEDS ORDERED: LEVOFLOXACIN 750 MG TAB PO SCH (21:00)
== END 2017-03-25 15:43 | DRG 152 ==
LOC: ENRESERVDT → ENRESERVTM → C.EDB 18:21 → C.MS4W 21:53
PROVIDERS: ADMIT Hospitalist; ATTEND Family Medicine
DX: J06.9 Acute upper respiratory infection, unspecified (principal); G93.41 Metabolic encephalopathy; I62.03 Nontraumatic chronic subdural hemorrhage; R53.1 Weakness; R32 Unspecified urinary incontinence; J45.909 Unspecified asthma, uncomplicated; G20 Parkinson's disease; N40.1 Benign prostatic hyperplasia with lower urinary tract symptoms; K21.9 Gastro-esophageal reflux disease without esophagitis; H04.129 Dry eye syndrome of unspecified lacrimal gland; F03.90 Unspecified dementia, unspecified severity, without behavioral disturbance, psychotic disturbance, mood disturbance, and anxiety; Z98.2 Presence of cerebrospinal fluid drainage device; Z66 Do not resuscitate; Z96.649 Presence of unspecified artificial hip joint; Z96.659 Presence of unspecified artificial knee joint; Z79.51 Long term (current) use of inhaled steroids; Z79.52 Long term (current) use of systemic steroids; Z79.899 Other long term (current) drug therapy

== ENCOUNTER → 2017-04-01 | Outpatient (CLI) | payer OTHER, MEDICARE ==
[~2017-04-01] MED LIST changes: +ACET-1256 PO; +ADVIN10/60 INH; +ARTIOIN OPB; -ASTN NAE; +AZAT50TA17 PO; -CARB25TA12 PO; -CLB/200 PO; +DOCU100C31 PO; -DUTA0.5C PO; -IPRASOL4 INH; +LVQ750 PO; -MULT-845 PO; +NYST1POW7 TD; -PANT40TA PO; -POLYSOL4 OP; +POLYSOL4 OPB; +PRED20TA PO; -SNG10 PO; +TRMCR130WC TD
[2017-04-01 11:05] LABS: BASO % 0.7 %; BASO ABS # 0.08 K/uL (0-0.2); COMPLETE YES; EOS % 3.3 %; HEMATOCRIT 39.2 % (42-52); IG% 3.7 %; LYMPH % 5.3 %; LYMPH ABS # 0.64 K/uL (1.2-3.4); MEAN CORPUSCULAR HEMOGLOBIN 29.7 pg (25-34); MEAN CORPUSCULAR HGB CONC 32.7 g/dl (32-36); MEAN PLATELET VOLUME 9.6 fL (7.4-10.4); MONO % 8.3 %; NEUT % 78.7 %; PLATELET COUNT 375 K/uL (130-400); RED BLOOD COUNT 4.31 M/uL (4.7-6.1); WHITE BLOOD COUNT 12.07 K/uL (4.8-10.8)
[2017-04-01 11:16] LABS: ALT/SGPT 62 U/L (12-78); AST/SGOT 16 U/L (15-37); BLOOD UREA NITROGEN 42 mg/dl (7-18); BUN/CREATININE RATIO 27.7 (10-20); CALCIUM 8.8 mg/dl (8.5-10.1); CARBON DIOXIDE 29 mmol/L (21-32); CHLORIDE 107 mmol/L (98-107); GLUCOSE 87 mg/dl (70-99); POTASSIUM 3.6 mmol/L (3.5-5.1); SODIUM 144 mmol/L (136-145)
[2017-04-01 11:18] LABS: ALB/GLOB RATIO 0.8 (0.9-2); ALKALINE PHOSPHATASE 81 U/L (45-117)
== END ==
LOC: C.LABVPSUA 10:36
PROVIDERS: ATTEND Internal Medicine Critical Care Medicine
DX: L12.0 Bullous pemphigoid (principal)

== ENCOUNTER → 2017-08-13 | Outpatient (CLI) | payer OTHER, MEDICARE ==
--- NOTE | 2017-08-13 12:52 | DIAGNOSTIC IMAGING REPORT ---
CT HEAD WITHOUT CONTRAST (CT) CLINICAL HISTORY: Hydrocephalus. Subdural hematomas. COMPARISON STUDY: 03/21/2017 TECHNIQUE: Axial CT of the brain is performed from the vertex to the skull base. IV contrast was not administered for this examination. A dose lowering technique was utilized adhering to the principles of ALARA. CT DOSE: 798.55 mGy.cm FINDINGS: There are chronic bifrontal subdural hematomas measuring 8 mm in thickness. Post craniotomy changes are again evident. There is no CT evidence of acute cortical infarction. There is no midline shift. There is mild ventricular dilatation similar to the preceding study. There is no change the position of the right-sided shunt catheter. There are patchy white matter hypodensities likely on a small vessel basis. There is no evidence of acute sinusitis IMPRESSION: 1. No change in the size of the chronic bifrontal subdural hematomas 2. Stable mild hydrocephalus. No change the position of the right frontal ventriculostomy catheter 3. No evidence of acute parenchymal hemorrhage Electronically signed by: Paul Boyd M.D. 08/13/2017 12:51 PM Dictated Date/Time: 08/13/2017 12:48 PM
== END | disposition home or self-care (01) ==
LOC: C.CTS 12:31
PROVIDERS: ATTEND Internal Medicine Critical Care Medicine
DX: G91.9 Hydrocephalus, unspecified (principal); Z98.2 Presence of cerebrospinal fluid drainage device

== ENCOUNTER → 2018-03-18 | Outpatient (CLI) | payer OTHER, MEDICARE ==
[2018-03-18 09:27] LABS: BASO % 0.4 %; BASO ABS # 0.03 K/uL (0-0.2); EOS % 4.4 %; EOS ABS # 0.32 K/uL (0-0.5); HEMATOCRIT 37.7 % (42-52); HEMOGLOBIN 12.4 g/dL (14.0-18.0); IG# 0.08 K/uL (0.00-0.02); LYMPH % 10.5 %; LYMPH ABS # 0.76 K/uL (1.2-3.4); MEAN CELL VOLUME 97.4 fL (80-100); MEAN CORPUSCULAR HGB CONC 32.9 g/dl (32-36); MEAN PLATELET VOLUME 10.6 fL (7.4-10.4); MONO % 15.4 %; MONO ABS # 1.11 K/uL (0.11-0.59); NEUT % 68.2 %; NEUT ABS # 4.91 K/uL (1.4-6.5); PLATELET COUNT 236 K/uL (130-400); RED CELL DISTRIBUTION WIDTH CV 15.8 % (11.5-14.5); RED CELL DISTRIBUTION WIDTH SD 55.8 fL (36.4-46.3); WHITE BLOOD COUNT 7.21 K/uL (4.8-10.8)
[2018-03-18 09:32] LABS: BLOOD UREA NITROGEN 31 mg/dl (7-18); CALCIUM 8.6 mg/dl (8.5-10.1); CARBON DIOXIDE 27 mmol/L (21-32); CREATININE 1.65 mg/dl (0.60-1.40); GLUCOSE 86 mg/dl (70-99); POTASSIUM 3.8 mmol/L (3.5-5.1); SODIUM 140 mmol/L (136-145)
== END | disposition home or self-care (01) ==
LOC: C.LABVPSUA 09:08
PROVIDERS: ATTEND Internal Medicine Critical Care Medicine
DX: R60.9 Edema, unspecified (principal)